=== PATIENT | female | born 1990 | race Caucasian/White ===

== ENCOUNTER 2021-02-04 17:55 | Emergency (ER) | payer BC ==
[2021-02-04 18:54] VITALS: RESP 18
[2021-02-04] MEDS ORDERED: ACETAMINOPHEN TAB 500 MG TAB PO STA (18:56)
[2021-02-04] MEDS ORDERED: IBUPROFEN 600 MG TAB PO STA (19:29)
--- NOTE | 2021-02-04 19:33 | ED ---
General Adult HPI - General Chief complaint: Shortness of Breath Stated complaint: covid+/increased SOB Time Seen by Provider: 02/04/21 19:04 Source: patient, RN notes reviewed Mode of arrival: ambulatory Limitations: no limitations - History of Present Illness Initial comments: This a 30-year-old female presents emergency Department chief complaint of positive covid. Patient states she started with symptoms last Thursday tested positive on 02/01/2021 patient states that she pressed has gotten worse cough started over the last few days with mild shortness of breath. No exertional symptoms no leg pain or leg swelling. Patient isn't diabetic taking metformin. Patient offers no other complaints. - Related Data Allergies Allergy/AdvReac Type Severity Reaction Status Date / Time No Known Allergies Allergy Verified 02/04/21 18:54 Review of Systems ROS Statement: Those systems with pertinent positive or pertinent negative responses have been documented in the HPI. ROS Other: All systems not noted in ROS Statement are negative. Past Medical History Past Medical History: Diabetes Mellitus Additional Past Medical History / Comment(s): PCOS, History of Any Multi-Drug Resistant Organisms: None Reported Past Surgical History: No Surgical Hx Reported Past Psychological History: No Psychological Hx Reported Smoking Status: Never smoker Past Alcohol Use History: None Reported Past Drug Use History: None Reported General Exam Limitations: no limitations General appearance: alert, in no apparent distress Head exam: Present: atraumatic, normocephalic, normal inspection Eye exam: Present: normal appearance, PERRL, EOMI. Absent: scleral icterus, conjunctival injection, periorbital swelling ENT exam: Present: normal exam, normal oropharynx, mucous membranes moist, TM's normal bilaterally Neck exam: Present: normal inspection, full ROM. Absent: tenderness, meningismus, lymphadenopathy Respiratory exam: Present: normal lung sounds bilaterally. Absent: respiratory distress, wheezes, rales, rhonchi, stridor Cardiovascular Exam: Present: normal rhythm, tachycardia, normal heart sounds. Absent: systolic murmur, diastolic murmur, rubs, gallop, clicks Neurological exam: Present: alert Course Vital Signs 02/04/21 18:51 Temperature 102.3 F H Pulse Rate 118 H Respiratory 18 Rate Blood Pressure 135/82 O2 Sat by Pulse 96 Oximetry Medical Decision Making - Medical Decision Making X-ray is essentially unremarkable. Patient's is vitally stable and will receive monoclonal antibodies and discharge. - Lab Data Lab Results 02/04/21 Range/Units 19:05 Coronavirus (PCR) Detected A (Not Detectd) Disposition Clinical Impression: COVID-19 Disposition: HOME SELF-CARE Condition: Stable Instructions (If sedation given, give patient instructions): Coronavirus Disease 2019 (COVID-19) Additional Instructions: Please return to the Emergency Department if symptoms worsen or any other concerns. Is patient prescribed a controlled substance at d/c from ED?: No Referrals: None,Stated [Primary Care Provider] - 1-2 days Time of Disposition: 19:33
--- NOTE | 2021-02-04 20:12 | XR ---
EXAMINATION TYPE: XR chest 2V DATE OF EXAM: 02/04/2021 CLINICAL HISTORY: Shortness of breath . COVID 19 positive. Fever. Cough. TECHNIQUE: Frontal and lateral view of the chest. COMPARISON: None FINDINGS: The cardiomediastinal silhouette is within normal limits for size. Pulmonary vasculature i s normal. There is no focal air space opacity, pleural effusion, or pneumothorax seen. The osseous st ructures are intact. IMPRESSION: No focal pulmonary process.
[2021-02-04] MEDS ORDERED: BAMLANIVIMAB (EUA) 700 MG, ETESEVIMAB (EUA) 1,400 MG in SODIUM CHLORIDE 0.9% 50 ML IVPB ONE (20:30)
[2021-02-04] MEDS ORDERED: SODIUM CHLORIDE 0.9% 50 ML IVPB ONE (20:30)
[2021-02-04 22:22] VITALS: BP 112/74; PULSE 102; TEMP 98.7
== END 2021-02-04 22:04 | disposition home or self-care (01) ==
LOC: EC 17:55
DX: U07.1 COVID-19 (principal); E11.9 Type 2 diabetes mellitus without complications
CPT/HCPCS: 87635; 71046; 99285; 96365; Q0245

== ENCOUNTER 2022-11-02 15:53 | Observation (INO) | payer BC ==
[2022-11-02] MEDS ORDERED: LACTATED RINGERS 1,000 ML IV SCH (16:45)
[2022-11-02 17:04] LABS: Basophils % (A) 0 %; Eosinophils # (A) 0.1 k/uL (0-0.7); Eosinophils % (A) 1 %; HCT 36.3 % (34.0-46.0); Lymphocytes # (A) 1.6 k/uL (1.0-4.8); Lymphocytes % (A) 17 %; MCH 26.9 pg (25.0-35.0); MCV 81.5 fL (80.0-100.0); Mean Platelet Volume 8.6; Monocytes # (A) 0.3 k/uL (0-1.0); Monocytes % (A) 3 %; Neutrophils # (A) 7.1 k/uL (1.3-7.7); Neutrophils % (A) 78 %; Platelet Count 118 k/uL (150-450); RBC 4.46 m/uL (3.80-5.40); RDW 14.7 % (11.5-15.5); WBC 9.1 k/uL (3.8-10.6)
[2022-11-02] MEDS: BETAMET ACET-BETAMETH SOD PHOS 6 MG/ML MDV IM SCH (17:30)
--- NOTE | 2022-11-02 17:44 | P.HPOB ---
History of Present Illness H&P Date: 11/02/22 Chief Complaint: Vaginal bleeding This is a 32-year-old 1 para 0 woman with an estimated due date of 02/11/2023 who presents at 25 weeks gestation with vaginal bleeding. She has had unexplained vaginal bleeding on and off throughout the . She woke up this morning with some bright red spotting and this is increased throughout the day. She developed some mild lower abdominal cramping and decided to come in for evaluation. Upon initial evaluation on labor and delivery triage she does have a pad that is saturated with dark blood. Speculum examination is limited secondary to small amount of dark clot in the vaginal canal and maternal body habitus. Bedside ultrasound shows an active fetus in the vertex presentation. Placenta is anterior with no evidence of blood show placental fluid accumulation. Transvaginal cervical length is greater than 4 cm. There is no funneling. PEARL appears normal, official ultrasound report is pending. Laboratory data: Blood type A+, antibody screen negative, rubella immune, VDRL nonreactive, hepatitis B surface antigen negative, HIV negative, gonorrhea and clinic cultures negative. Patient has type 2 diabetes and takes both metformin and insulin. This was conceived by in vitro fertilization. Patient had an ultrasound in the office on 10/29/2022 which showed an appropriately grown infant with normal PEARL, anterior placenta and no evidence of retroplacental bleed. There is no active bleeding noted throughout her time in triage and during the ultrasound however in light of her gestational age and unexplained episodes of vaginal bleeding plan is to admit for observation through the steroid window. First dose of betamethasone is given now and will be repeated in 24 hours. Patient and her are counseled that should she have any increase in bright red vaginal bleeding, signs of labor or distress that she will be likely transferred to a tertiary care facility. Patient and her are in agreement with the plan. Review of Systems All systems: negative Constitutional: Denies chills, Denies fatigue, Denies fever Cardiovascular: Denies chest pain, Denies rapid heart beat, Denies shortness of breath Respiratory: Denies cough Gastrointestinal: Denies abdominal pain, Denies BRBPR, Denies heartburn, Denies melena, Denies nausea, Denies vomiting Genitourinary: Reports abnormal vaginal bleeding, Denies hematuria Musculoskeletal: Denies low back pain Integumentary: Denies rash Neurological: Denies headaches, Denies visual changes Hematologic/Lymphatic: Denies easy bleeding, Denies easy bruising Past Medical History Past Medical History: Diabetes Mellitus Additional Past Medical History / Comment(s): PCOS, History of Any Multi-Drug Resistant Organisms: None Reported Past Surgical History: No Surgical Hx Reported Smoking Status: Never smoker Medications and Allergies Allergies Allergy/AdvReac Type Severity Reaction Status Date / Time No Known Allergies Allergy Verified 02/04/21 18:54 Exam Intake and Output 11/02/22 11/02/22 11/02/22 06:59 14:59 22:59 Other: Weight 103.873 kg Results Result Diagrams: 11/02/22 16:52 Abnormal Lab Results - Last 24 Hours (Table) 11/02/22 Range/Units 16:52 Plt Count 118 L (150-450) k/uL Assessment and Plan (1) 25 to 26 weeks gestation of Current Visit: Yes Status: Acute Code(s): NMZ2382 - SNOMED Code(s): 881966861 (2) Vaginal bleeding Current Visit: Yes Status: Acute Code(s): N93.9 - ABNORMAL UTERINE AND VAGINAL BLEEDING, UNSPECIFIED SNOMED Code(s): 268288930 (3) Diabetes in Current Visit: Yes Status: Acute Code(s): O24.919 - UNSP DIABETES MELLITUS IN , UNSPECIFIED TRIMESTER SNOMED Code(s): 821065910 Plan: Admit for observation secondary to unexplained vaginal bleeding in the second trimester. First dose of betamethasone given now and will be repeated in 24 hours. She may be discharged at that time assuming no change in status. Time with Patient: Greater than 30
--- NOTE | 2022-11-02 17:55 | US ---
EXAMINATION TYPE: US OB limited DATE OF EXAM: 11/02/2022 COMPARISON: NONE CLINICAL HISTORY: Bleeding. EXAM PERFORMED: GESTATIONAL AGE / DATING Physician Established: (25 weeks/4 days) EDC: 02-11-23 No growth performed on today?s study per ordering physician SURVEY PLACENTA: Anterior PREVIA: No Previa Ultrasound evidence of abruption? no PEARL: 11.6 cm Ultrasound evidence of premature rupture of membranes? no CERVICAL LENGTH (transabdominal: norm > 3.0cm): 3.5 cm CERVICAL LENGTH (transvaginal: norm> 2.5cm): 3.7 cm (Supplemental transvaginal imaging performed to verify cervical length.) Ultrasound evidence of cervical incompetence? no (Tech?if abnormal transabdominally?image transvaginally to substantiate abnormality.) PRESENTATION: Vertex HEART RATE: 142 bpm RHYTHM: Normal IMPRESSION: Normal amniotic fluid. No complicating process seen. Cephalic presentation.
[2022-11-02] MEDS ORDERED: INSULIN REGULAR 100 UNIT/ML VIAL (IM/SQ) SQ ONE (18:00)
--- NOTE | 2022-11-02 18:25 | US ---
EXAMINATION TYPE: US OB TV Cervical Measurement DATE OF EXAM: 11/02/2022 Pictures in OB limited. REASON FOR EXAM: Per Ordering Physician?this transvaginal scan is to assess the CERVICAL LENGTH for i ncompetence or funneling. GESTATIONAL AGE / DATING Physician Established: (25 weeks/4 days) EDC: 02-11-23 MATERNAL/ SURVEY CERVICAL LENGTH (transvaginal: norm> 2.5cm): 3.6 cm Ultrasound evidence of shortened cervix? no Ultrasound evidence of funneling? no PRESENTATION: Vertex HEART RATE: 142 bpm RHYTHM: Normal IMPRESSION: The cervix is closed and measures 4 cm in length.
[2022-11-02] MEDS: metFORMIN 500 MG TAB PO SCH ×2 (18:39→21:24)
[2022-11-02] MEDS: ASPIRIN 81 MG PO STA (18:39)
[2022-11-02 21:24] LABS: Glucose,Whole Blood 171 mg/dL (70-110)
[2022-11-03 04:14] VITALS: RESP 16
[2022-11-03] MEDS: INSULIN ASPART (NovoLOG) 100 UNIT/ML VIAL SQ SCH ×3 (04:15→12:13)
[2022-11-03] MEDS: ASPIRIN 81 MG PO STA (04:19)
[2022-11-03 07:02] LABS: Glucose,Whole Blood 126 mg/dL (70-110)
[2022-11-03] MEDS: metFORMIN 500 MG TAB PO SCH ×2 (07:25→17:20)
[2022-11-03] MEDS ORDERED: INSULIN REGULAR 100 UNIT/ML VIAL (IM/SQ) SQ ONE (08:00)
--- NOTE | 2022-11-03 11:53 | P.DS ---
Providers Date of admission: 11/02/22 17:33 Expected date of discharge: 11/03/22 Attending physician: Herbert Mello Primary care physician: Herbert Mello - Discharge Diagnosis(es) (1) 25 to 26 weeks gestation of Current Visit: Yes Status: Acute (2) Vaginal bleeding Current Visit: Yes Status: Acute Hospital Course: the patient is a 32-year-old 1 para 0 admitted at 25+ weeks by good dating parameters. her only complication is that she is a pre- gestational diabetic on insulin. She is admitted with an acute episode of vaginal bleeding which is unexplained in nature, no etiology apparent. She has had similar episodes earlier in the that resolved spontaneously. She did develop some mild lower abdominal cramping and decided to present to labor and delivery at which time she was evaluated. Ultrasound demonstrated no findings on transvaginal ultrasound demonstrated a normal cervical length of 3.6 cm with no evidence of funneling. There was no evidence of retroplacental clot or abruption of the placenta on any level. On labor and delivery, she was admitted for 23 observation and administration of steroids. She has had no further bleeding since admission. Blood sugars have been somewhat labile as might be expected with administration of steroids. Her second dose of steroids will be due late this afternoon after which time she will be discharged home to follow-up in the office as previously scheduled in approximately 3 weeks' time. she was given instructions to continue to call for any evidence of significant bleeding and to abstain from anything in vagina until at least the next evaluation in the office. She is to do no heavy lifting and to otherwise remain relatively at rest. She understood her instructions and agrees follow up as noted above. Discharge medications included only continue vitamins and her normal insulin regimen which she manages well on her own. Maternal blood type is A+. Procedures: #1. 23 hour observation #2. Administration of intramuscular steroids x2 Patient Condition at Discharge: Stable Plan - Discharge Summary Discharge Rx Participant: No Follow up Appointment(s)/Referral(s): Herbert Mello MD [Primary Care Provider] - 3 Weeks Discharge Disposition: HOME SELF-CARE
[2022-11-03 12:10] LABS: Glucose,Whole Blood 122 mg/dL (70-110)
[2022-11-03 16:17] VITALS: BP 117/70; PULSE 91; TEMP 98.6
[2022-11-03] MEDS: BETAMET ACET-BETAMETH SOD PHOS 6 MG/ML MDV IM SCH (17:21)
== END 2022-11-03 17:30 | disposition home or self-care (01) ==
LOC: FBPOP 15:53 → 4FBP 17:33
PROVIDERS: ADMIT Obstetrics & Gynecology; ATTEND Obstetrics & Gynecology
DX: O46.92 Antepartum hemorrhage, unspecified, second trimester (principal); O24.112 Pre-existing type 2 diabetes mellitus, in pregnancy, second trimester; E11.9 Type 2 diabetes mellitus without complications; O99.282 Endocrine, nutritional and metabolic diseases complicating pregnancy, second trimester; E28.2 Polycystic ovarian syndrome; Z3A.26 26 weeks gestation of pregnancy; Z79.4 Long term (current) use of insulin; Z79.84 Long term (current) use of oral hypoglycemic drugs
CPT/HCPCS: 99215; 96360; 96372 ×2; 85025; 76815; 76817; G0378 ×2; J0702 ×2; 96365

== ENCOUNTER 2022-12-25 06:31 | Outpatient (CLI) | payer BC ==
[2022-12-25 10:09] VITALS: BP 122/80; PULSE 76; RESP 18; TEMP 98
--- NOTE | 2023-01-24 12:03 | P.MSEPDOC ---
Presenting Problems - Arrival Data Date of Arrival on Unit: 12/25/22 Time of Arrival on Unit: 06:00 Mode of Transport: Ambulatory - Complaint OB-Reason for Admission/Chief Complaint: Decreased Movement, Vaginal Bleeding Medical History - Information : 1 Para: 0 Term: 0 : 0 Abortions: Spontaneous or Elective: 0 Number of Living Children: 0 - Gestational Age Gestational Age by SUSIE (wks/days): 33 Weeks and 1 Days - History Comment: ongoing bleeding in , decreased movement today Review of Systems - Review of Systems Constitutional: No problems Breast: No problems ENT: No problems Cardiovascular: No problems Respiratory: No problems Gastrointestinal: No problems Genitourinary: No problems Musculoskeletal: No problems Neurological: No problems Skin: No problems Vital Signs - Temperature Temperature: 98.0 F Temperature Source: Oral - Pulse Right Sitting Brachial Pulse Rate: 76 Pulse Assessment Method: Automatic Cuff - Respirations Respiratory Rate: 18 Oxygen Delivery Method: Room Air - Blood Pressure Right Arm Sitting Blood Pressure: 122/80 Blood Pressure Mean: 94 Blood Pressure Source: Automatic Cuff Medical Screen Scoring - Assessment - Baby A Baseline FHR: 135 Heart Rate - NICHD Category: Category I (Normal) NST: Reactive Physician Notification - Physician Notified Physician Notified Date: 12/25/22 Physician Notified Time: 10:07 Physician: 1000 New Order Received: Yes - Notification Comment Comment: co home. Dr Mello to call pt with plan after speaking with MFM. Continue NSTs as discussed per Dr Mello. Pt verbalized understanding Maternal Triage Index - Maternal Triage Index Presenting for scheduled procedure w/no complaint: No - Stat/Priority 1 Stat Priority 1: No - Urgent/Priority 2 Urgent Priority 2: No - Prompt/Priority 3 Prompt Priority 3: Yes Criteria Met for Priority 3: ongoing bleeding in Disposition - Disposition OB Disposition: Discharge to home Discharge Date: 12/25/22 Discharge Time: 10:03 I agree with the RN Medical Screening Exam: Yes Physician's MSE Comment: I have neither seen nor examined the patient. Case reviewed; plan agreed upon as documented in EMR&OBIX.: Yes Diagnosis: RELATED CONDITIONS, UNSPECIFIED, THIRD TRIMESTER
== END 2022-12-25 10:00 | disposition home or self-care (01) ==
LOC: FBPOP 06:31
PROVIDERS: ATTEND Obstetrics & Gynecology
DX: O46.93 Antepartum hemorrhage, unspecified, third trimester (principal); Z3A.33 33 weeks gestation of pregnancy; O36.8131 Decreased fetal movements, third trimester, fetus 1
CPT/HCPCS: 59025; 99215

== ENCOUNTER 2023-01-03 18:30 | Outpatient (CLI) | payer BC ==
[2023-01-03 21:42] VITALS: BP 146/85; PULSE 80; RESP 16; TEMP 98.4
--- NOTE | 2023-02-08 10:14 | P.MSEPDOC ---
Presenting Problems - Arrival Data Date of Arrival on Unit: 01/03/23 Time of Arrival on Unit: 18:30 Mode of Transport: Ambulatory - Complaint OB-Reason for Admission/Chief Complaint: Vaginal Bleeding Comment: pt presents to triage with c/o bleeding that has been ongoing for the last few. weeks and has been seen in triage as well [place] [facility] [place] then d/c home from there at noon the same day Medical History - Information : 1 Para: 0 Term: 0 : 0 Abortions: Spontaneous or Elective: 0 Number of Living Children: 0 - Gestational Age Gestational Age by SUSIE (wks/days): 34 Weeks and 3 Days - History Complications: Other Comment: Type 2 diabetic on insulin, IVF treatment for Review of Systems - Review of Systems Constitutional: No problems Breast: No problems ENT: No problems Cardiovascular: No problems Respiratory: No problems Gastrointestinal: No problems Genitourinary: No problems Musculoskeletal: No problems Neurological: No problems Skin: No problems Vital Signs - Temperature Temperature: 98.4 F Temperature Source: Temporal Artery Scan - Pulse Pulse Oximetery Pulse Rate: 80 Pulse Assessment Method: Pulse Oximetry - Respirations Respiratory Rate: 16 Oxygen Delivery Method: Room Air O2 Sat by Pulse Oximetry: 99 - Blood Pressure Left Arm Blood Pressure: 146/85 Blood Pressure Mean: 105 Blood Pressure Source: Automatic Cuff Medical Screen Scoring - Assessment - Baby A Baseline FHR: 130 Heart Rate - NICHD Category: Category I (Normal) NST: Reactive Physician Notification - Physician Notified Physician Notified Date: 01/03/23 Physician Notified Time: 18:55 Physician: Diane Reyes S - Notification Comment Comment: report given to dr reyes, reported pt ongoing hx of bleeding and interventions. leading up to todays visit. dr reyes aware. reported variable and nst non. reactive at this time. per torb dr reyes, monitor pt for a couple of hours. give more. time for reactive nst, pt to be npo, and monitor bleeding/pad count. call back for. additional orders after monitoring period is complete. Maternal Triage Index - Maternal Triage Index Presenting for scheduled procedure w/no complaint: No - Stat/Priority 1 Stat Priority 1: No - Urgent/Priority 2 Urgent Priority 2: No - Prompt/Priority 3 Prompt Priority 3: No - Non-Urgent/Priority 4 Non-Urgent Priority 4: Yes Criteria Met for Priority 4: pt presents to triage with c/o bleeding that has been ongoing for the last few. weeks and has been seen in triage as well [place] [facility] [place] then d/c home from there at noon the same day Disposition - Disposition OB Disposition: Discharge to home Discharge Date: 01/03/23 Discharge Time: 21:13 I agree with the RN Medical Screening Exam: Yes Case reviewed; plan agreed upon as documented in EMR&OBIX.: Yes Diagnosis: SPOTTING COMPLICATING , THIRD TRIMESTER
== END 2023-01-03 21:13 ==
LOC: FBPOP 18:30
PROVIDERS: ATTEND Obstetrics & Gynecology Obstetrics
DX: O26.853 Spotting complicating pregnancy, third trimester (principal); Z3A.34 34 weeks gestation of pregnancy; O24.913 Unspecified diabetes mellitus in pregnancy, third trimester; O09.813 Supervision of pregnancy resulting from assisted reproductive technology, third trimester; E11.9 Type 2 diabetes mellitus without complications; Z79.4 Long term (current) use of insulin
CPT/HCPCS: 59025; 99213

== ENCOUNTER 2023-01-06 16:20 | Outpatient (CLI) | payer BC ==
[2023-01-06 18:09] VITALS: BP 162/94; PULSE 77; TEMP 97
== END 2023-01-06 17:46 | disposition home or self-care (01) ==
LOC: FBPOP 16:20
PROVIDERS: ATTEND Obstetrics & Gynecology
DX: O76 Abnormality in fetal heart rate and rhythm complicating labor and delivery (principal); Z3A.34 34 weeks gestation of pregnancy
CPT/HCPCS: 59025; 99213

== ENCOUNTER 2023-01-16 08:04 | Inpatient (IN) | payer BC ==
[2023-01-16 08:38] LABS: Glucose,Whole Blood 73 mg/dL (70-110)
[2023-01-16] MEDS ORDERED: LACTATED RINGERS 1,000 ML IV ONE (08:45)
[2023-01-16] MEDS ORDERED: CITRIC ACID-SODIUM CITRATE 15 ML CUP PO ONE (08:45)
[2023-01-16] MEDS ORDERED: METHYLERGONOVINE 0.2 MG/ML 1 ML AMP IM PRN (08:45)
[2023-01-16] MEDS ORDERED: TRANEXAMIC ACID IN NACL,ISO-OS 1,000 MG in EMPTY BAG 1 BAG IV PRN (08:45)
[2023-01-16] MEDS ORDERED: OXYTOCIN 30 UNITS/500 ML NS 30 UNIT in SALINE 1 500ML.BAG IV SCH ×2 (08:45→11:30)
[2023-01-16] MEDS ORDERED: miSOPROStoL 200 MCG TAB PO PRN (08:45)
[2023-01-16] MEDS ORDERED: OXYTOCIN 10 UNIT/ML 1 ML VIAL IM PRN (08:45)
[2023-01-16] MEDS ORDERED: CARBOPROST TROMETHAMINE 250 MCG/ML 1 ML AMP IM PRN (08:45)
[2023-01-16 09:05] LABS: Basophils % (A) 0 %; Eosinophils # (A) 0.1 k/uL (0-0.7); Eosinophils % (A) 1 %; HCT 36.3 % (34.0-46.0); HGB 11.9 gm/dL (11.4-16.0); Lymphocytes # (A) 1.5 k/uL (1.0-4.8); Lymphocytes % (A) 17 %; MCH 26.5 pg (25.0-35.0); MCHC 32.7 g/dL (31.0-37.0); MCV 80.9 fL (80.0-100.0); Mean Platelet Volume 10.1; Monocytes # (A) 0.4 k/uL (0-1.0); Monocytes % (A) 4 %; Neutrophils % (A) 77 %; Platelet Count 118 k/uL (150-450); RBC 4.49 m/uL (3.80-5.40); RDW 14.9 % (11.5-15.5); WBC 9.1 k/uL (3.8-10.6)
[2023-01-16 09:16] LABS: ALT 15 U/L (4-34); AST 21 U/L (14-36); African American GFR (CKD) >90 (>60 ml/min/1.73 sqM); Blood Urea Nitrogen 15 mg/dL (7-17); LDH 153 U/L (120-246); Non-African American GFR(CKD) >90 (>60 ml/min/1.73 sqM); Uric Acid 6.8 mg/dL (3.7-7.4)
[2023-01-16 09:37] LABS: INR 0.9 (<1.2); Prothrombin Time 9.5 sec (9.0-12.0)
--- NOTE | 2023-01-16 09:39 | P.HPOB ---
History of Present Illness H&P Date: 01/16/23 Chief Complaint: 36+ weeks, IUGR, oligohydramnios, unfavorable cervix the patient is a 32-year-old 1 para 0 who is admitted to the hospital at 36-2/7 weeks as determined by in vitro fertilization dating. She is admitted for primary low-transverse section secondary to primarily intrauterine growth restriction with now fairly significant oligohydramnios. Ultrasound yesterday demonstrated amniotic fluid index of 3.9 cm. Biophysical profile was 10 out of 10. Her is also been complicated by irregular random unexplained episodes of vaginal bleeding. 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 She was diagnosed at approximately 31 weeks with intrauterine growth restrict ion. She has had twice weekly testing which has been reassuring throughout. She did undergo maternal medicine consultation and was transferred twice to [facility] for further evaluation secondary to the intermittently of the problems listed above. On labor and delivery today, all signs are reassuring with a category 1 heart rate tracing. Blood sugar is normal. She does have some mildly elevated blood pressures but is also extraordinarily nervous regarding the upcoming procedure. Group B strep status has not been done given her gestational age. Obstetrical history: 1 para 0 with current statistics listed in history present illness. EDC of 02/11/2023 was established by in vitro fertilization dating parameters. Laboratory workup demonstrates a blood type of A+ with a negative antibody screen. Rubella status is immune. The remainder of the laboratory workup was within normal limits. The patient was a known diabetic and did not undergo any Glucola testing. Group B strep status is unknown as she is just 36 weeks. Gynecologic history: Unremarkable with no history of any infections to include STDs. Review of Systems review of systems is confined to history of present illness. Past Medical History Past Medical History: Diabetes Mellitus Additional Past Medical History / Comment(s): PCOS, History of Any Multi-Drug Resistant Organisms: None Reported Past Surgical History: No Surgical Hx Reported Additional Past Surgical History / Comment(s): hysteroscopy and egg retreval 2021 Past Anesthesia/Blood Transfusion Reactions: No Reported Reaction Past Psychological History: No Psychological Hx Reported Smoking Status: Never smoker Past Alcohol Use History: None Reported Past Drug Use History: None Reported Medications and Allergies Home Medications Medication Instructions Recorded Confirmed Type Aspirin [Adult Low Dose Aspirin EC] 1 tablet DAILY 12/18/22 01/06/23 History Cholecalciferol [Vitamin D3 (25 1,000 units DAILY 12/18/22 01/06/23 History Mcg = 1000 Iu)] Folic Acid 1 tablet DAILY 12/18/22 01/06/23 History Insulin Glargine [Lantus Vial] 80 units SQ ACHS 12/18/22 01/06/23 History Insulin Lispro Rx Scale Form 80 units SQ DAILY 12/18/22 01/06/23 History [humaLOG Outpatient Scale Rx Form] [place]-3/Dha/Epa/Fish Oil [Fish Oil 1 capsule DAILY 12/18/22 01/06/23 History 500 mg Softgel] Vit No.179/Iron/Folic 1 tablet DAILY 12/18/22 01/06/23 History [ Tablet] metFORMIN HCL 1,000 mg PO BID 12/18/22 01/06/23 History Allergies Allergy/AdvReac Type Severity Reaction Status Date / Time No Known Allergies Allergy Verified 01/06/23 16:38 Exam Vital Signs Resp BP Pulse Ox 01/16/23 08:25 18 154/100 99 Intake and Output 01/15/23 01/16/23 01/16/23 22:59 06:59 14:59 Other: Weight 117.934 kg in general, this is a morbidly obese white female in no acute distress. Her heart has a regular rhythm and rate without murmur. Her lungs clear to auscultation bilaterally in all rush. Her abdomen is obese, nondistended, has normal active bowel sounds, soft, nontender, without any palpable masses aside from uterine fundus. Her extremities are without any cyanosis, clubbing, or edema and are nontender to palpation bilaterally. Digital cervical examination performed yesterday demonstrated her cervix to be closed, thick, and very high. The vertex is in presentation. Results Result Diagrams: 01/16/23 08:30 01/16/23 08:30 Abnormal Lab Results - Last 24 Hours (Table) 01/16/23 Range/Units 08:30 Plt Count 118 L (150-450) k/uL Assessment and Plan (1) Unfavorable cervix in term Current Visit: Yes Status: Acute Code(s): O34.40 - MATERNAL CARE FOR OTH ABNLT OF CERVIX, UNSP TRIMESTER SNOMED Code(s): 798248669 (2) Oligohydramnios Current Visit: Yes Status: Acute Code(s): O41.00X0 - OLIGOHYDRAMNIOS, UNSP TRIMESTER, NOT APPLICABLE OR UNSP SNOMED Code(s): 57297687 (3) Intrauterine growth retardation in Current Visit: Yes Status: Acute Code(s): O36.5990 - MATERN CARE FOR OTH OR SUSP POOR FETL GRTH, UNSP TRI, UNSP SNOMED Code(s): 470710502 (4) 36 to 37 weeks gestation of Current Visit: Yes Status: Acute Code(s): YMS6752 - SNOMED Code(s): 730240317 Plan: the patient is admitted for primary low-transverse section. We discussed the possibility of induction of labor but, given the remoteness from delivery and the diagnoses as outlined above, the likelihood of tolerance of labor is very low. The patient has received steroids during the and the suspicion for prematurity is low despite the diagnosis of diabe adriana. She will be taken to the operating room for primary low-transverse section within the next 20-30 minutes.
[2023-01-16] MEDS: LACTATED RINGERS 1,000 ML IV SCH ×2 (09:43→17:54)
[2023-01-16 09:46] LABS: Appearance,Urine Clear (Clear); Bilirubin,Urine Negative (Negative); Blood,Urine Trace (Negative); Color,Urine Yellow; Glucose,Urine (UA) Negative (Negative); Ketones,Urine Negative (Negative); Leukocyte Esterase,Urine Negative (Negative); Mucus,Urine Occasional /hpf; Nitrite,Urine Negative (Negative); Protein,Urine 3+ (Negative); RBC,Urine 1 /hpf (0-5); Specific Gravity,Urine 1.023 (1.001-1.035); Squamous Epithelial Cell,Urine <1 /hpf (0-4); Urobilinogen,Urine <2.0 mg/dL (<2.0); WBC,Urine 1 /hpf (0-5)
[2023-01-16 09:54] LABS: Creatinine,Urine Random 128.9 mg/dL
[2023-01-16 10:03] LABS: Protein/Creatinine Ratio,Urine 3.507
[2023-01-16] MEDS ORDERED: OXYTOCIN 30 UNITS/500 ML NS BAG IV ONE (10:04)
[2023-01-16] MEDS ORDERED: PROPOFOL 10 MG/ML 20 ML VIAL IV ONE (10:04)
[2023-01-16] MEDS ORDERED: SUCCINYLCHOLINE CHLORIDE 200 MG/10 ML VIAL IV ONE (10:04)
[2023-01-16] MEDS ORDERED: ONDANSETRON 4 MG/2 ML VIAL ONE (10:04)
[2023-01-16] MEDS ORDERED: fentaNYL (PF) 50 MCG/ML 2 ML AMP ONE (10:04)
[2023-01-16] MEDS ORDERED: KETOROLAC 30 MG/ML 1 ML VIAL ONE (10:04)
[2023-01-16] MEDS ORDERED: NALOXONE 0.4 MG/ML 1 ML VIAL IV PRN (11:29)
[2023-01-16] MEDS ORDERED: LANOLIN CREAM 5 GM TUBE TOPICAL PRN (11:29)
[2023-01-16] MEDS ORDERED: diphenhydrAMINE 50 MG/ML 1 ML VIAL IVP PRN ×2 (11:29)
[2023-01-16] MEDS ORDERED: ONDANSETRON 4 MG/2 ML VIAL IVP PRN (11:29)
[2023-01-16] MEDS ORDERED: ZOLPIDEM 5 MG TAB PO PRN (11:29)
[2023-01-16] MEDS ORDERED: diphenhydrAMINE 25 MG CAP PO PRN (11:29)
[2023-01-16] MEDS ORDERED: SIMETHICONE 80 MG CHEWABLE PO PRN (11:29)
[2023-01-16] MEDS ORDERED: diphenhydrAMINE 50 MG CAP PO PRN (11:29)
[2023-01-16] MEDS ORDERED: METOCLOPRAMIDE 5 MG/ML 2 ML VIAL IVP PRN (11:29)
[2023-01-16] MEDS ORDERED: KETOROLAC 15 MG/ML 1 ML VIAL IVP PRN (11:29)
[2023-01-16] MEDS ORDERED: HYDROmorphone PCA 10 MG/50 ML BAG IV PRN (11:29)
--- NOTE | 2023-01-16 11:40 | P.OP ---
Date of Procedure: 01/16/23 Preoperative Diagnosis: #1. 36-2/7 weeks, IUGR #2. Severe oligohydramnios #3. Insulin-dependent diabetes #4. Unfavorable cervix/remote from delivery Postoperative Diagnosis: same Procedure(s) Performed: #1. Primary low-transverse section Anesthesia: TAQUERIA Surgeon: Herbert Mello Crawler Dragline Operator #1: Josephine Vilchis Estimated Blood Loss (ml): 630 IV fluids (ml): 2,000 Urine output (ml): 300 Pathology: other (placenta) Condition: stable Disposition: floor Operative Findings: multiple attempts were made to place a spinal by anesthesia at several different levels and with different length and size of needles with no success. As a result general endotracheal anesthesia was required. Intraoperatively, the patient was delivered of a viable 4 lbs. 5 oz. baby boy with Apgars of 8 at 1 minute and 8 at 5 minutes. There was meconium-stained fluid. The placenta was delivered manually, intact, and grossly normal with a grossly normal three- vessel cord. The uterus, tubes, and ovaries were entirely normal to inspection. Description of Procedure: after multiple attempts at placing a spinal were made with no success, the patient was prepped and draped in usual fashion after which time general endotracheal anesthesia was administered. A Pfannenstiel incision was made and extended into the abdominal cavity without difficulty. The bladder peritoneum was significantly distal to the intended site of incision was left intact. A 2 cm incision was made in the transverse plane of the lower uterine segment to enter the uterus at which time the placenta was encountered. I proceeded through the placenta to the infant was in the vertex presentation. There was lightly meconium-stained fluid. The head was delivered up and through the incision and the infant was delivered onto the field where the nose and mouth were thoroughly suctioned, the cord was doubly clamped, cut, and the infant passed resuscitative measures with weight and Apgars as noted above. A segment of cord was doubly clamped, cut, and set aside should cord gases become necessary. The placenta was delivered manually and intact as noted above. The uterus was exteriorized and the interior cavity uterus swept of any remaining placental or membranous fragments. The margins of the uterine incision were grasped with Segovia clamps and the incision closed in 2 layers. The first layer was a running locking stitch of 0 chromic catgut followed by a running imbricating layer of 0 chromic catgut. There was some ongoing bleeding from a central sinus which was made hemostatic with a single [id number] stitch of 0 chromic catgut. The posterior cul-de-sac was suctioned with a guard and then cleaned further with a laparotomy sponge. The uterine and ovarian findings were normal as noted above. The uterus was replaced within the abdominal cavity and the gutters swept of any remaining blood, fluid, or clot. Reexamination of the uterine incision demonstrated excellent hemostasis. The parietal peritoneum was loosely reapproximated and layer of muscles examined and made hemostatic with the Bovie. The fascia was closed with 2 running stitches of 0 Vicryl starting from the lateral margins and proceeding to the midpoint. The subcutaneous tissues were irrigated, made hemostatic with the Bovie and reapproximated with a running stitch of 3-0 plain catgut. The skin was reapproximated with a running subcuticular stitch of 4-0 Vicryl followed by half-inch Steri-Strips placed with Mastisol. Quantitative blood loss for the case was 630 mL. There were no complications. All sponge, instrument, needle counts were correct. Both mother and infant are resting comfortably in recovery.
[2023-01-16] MEDS ORDERED: LABETALOL 100 MG TAB PO SCH (13:00)
[2023-01-16 15:57] LABS: Glucose,Whole Blood 79 mg/dL (70-110)
--- NOTE | 2023-01-16 16:32 | P.CONS ---
History of Present Illness - Reason for Consult Consult date: 01/16/23 - History of Present Illness Patient is a 32-year-old female G1 P 0 admitted to [facility] for elective low-transverse section secondary to intrauterine growth restriction and oligohydramnios. She underwent primary low transverse section with Dr. Mello on 01/16. [facility] has been consulted for medical management of this patient with regard to elevated blood pressures and management of diabetes requiring insulin. Patient reports being diagnosed with gestational hypertension by her MFM 1 week ago. She was not started on any medication at that time. Her BP prior to surg alona today was 154/100. Her BP post surgery has ranged from BP of 166 to DBP of 102. Her most recent BP is 145/92. Patient reports being diagnosed with diabetes mellitus in 2019. She follows an medical economics consultant. Prior to , she was on Lantus 35 units twice a day along with NovoLog sliding scale 3 times a day. During her , her Lantus was increased to 40 units twice a day. Her medical economics consultant told her to decrease her Lantus to 20 units twice a day post delivery. Her most recent Accu-Chek during this encounter is 79. Patient reports 0 out of 10 pain currently. She has no complaints currently. She denies any chest pain, shortness breath, palpitations, dizziness or headache. Pertinent positives and negatives as discussed in HPI, a complete review of systems was performed and all other systems are negative. General: non toxic, no distress, appears at stated age Derm: warm, dry Head: atraumatic, normocephalic, symmetric Eyes: EOMI, no lid lag, anicteric sclera Mouth: no lip lesion, mucus membranes moist Cardiovascular: S1S2 reg, no murmur Lungs: CTA bilateral, no rhonchi, no rales , no accessory muscle use Ext: no gross muscle atrophy, no edema, no contractures Neuro: no focal neuro deficits Psych: Alert, oriented, appropriate affect #Preeclampsia #Insulin-requiring diabetes mellitus Based on my assessment of this patient, this patient meets a high complexity level of care. I have reviewed the following ada accommodation consultant notes: I have reviewed the results of the following tests: CBC shows platelet count of 118. Coagulation panel is within normal limits. BUN 15, creatinine 0.55 and GFR > 90. Nnopa-sy-cwlk Accu-Chek 79. Hemoglobin A1c 5.9. Uric acid 6.8. AST is 21, ALT is 15. I have ordered the following tests: CBC ordered for tomorrow morning. I have discussed the care of this patient with the following independent historian: None. I have independently interpreted the following test below: None. I have discussed the management of this patient with the following physician: None. This patient has a high risk of morbidity due to the following reasons: Patient has an acute diagnosis of preeclampsia that poses a threat to life or bodily function. She rates her pain 0 out of 10 currently. Urinalysis shows 3+ protein, protein to creatinine ratio 3.507 and urine total protein of 452. We will start labetalol 100 mg mouth twice a day for SBP > 160 or DBP > 90. Her most recent hemoglobin A1c is 5.9. Her most recent Accu-Chek is 79. I will hold her long-acting insulin at this time. We'll start low-dose sliding scale. Accu-Cheks will be ordered before meals and at bedtime along with hypoglycemic precautions. Continue Dilaudid IV ACID DUMPER pump for pain control. This should also help with controlling her blood pressure. Repeat CBC tomorrow morning. Past Medical History Past Medical History: Diabetes Mellitus Additional Past Medical History / Comment(s): PCOS, History of Any Multi-Drug Resistant Organisms: None Reported Past Surgical History: No Surgical Hx Reported Additional Past Surgical History / Comment(s): hysteroscopy and egg retreval 2021 Past Anesthesia/Blood Transfusion Reactions: No Reported Reaction Past Psychological History: No Psychological Hx Reported Smoking Status: Never smoker Past Alcohol Use History: None Reported Past Drug Use History: None Reported Medications and Allergies Home Medications Medication Instructions Recorded Confirmed Type Aspirin [Adult Low Dose Aspirin EC] 1 tablet DAILY 12/18/22 01/06/23 History Cholecalciferol [Vitamin D3 (25 1,000 units DAILY 12/18/22 01/06/23 History Mcg = 1000 Iu)] Folic Acid 1 tablet DAILY 12/18/22 01/06/23 History Insulin Glargine [Lantus Vial] 80 units SQ ACHS 12/18/22 01/06/23 History Insulin Lispro Rx Scale Form 80 units SQ DAILY 12/18/22 01/06/23 History [humaLOG Outpatient Scale Rx Form] [place]-3/Dha/Epa/Fish Oil [Fish Oil 1 capsule DAILY 12/18/22 01/06/23 History 500 mg Softgel] Vit No.179/Iron/Folic 1 tablet DAILY 12/18/22 01/06/23 History [ Tablet] metFORMIN HCL 1,000 mg PO BID 12/18/22 01/06/23 History Allergies Allergy/AdvReac Type Severity Reaction Status Date / Time No Known Allergies Allergy Verified 01/06/23 16:38 Physical Exam Vitals: Vital Signs Temp Pulse Resp BP Pulse Ox 01/16/23 14:25 145/92 01/16/23 13:37 98.3 F 82 16 156/94 99 01/16/23 13:00 80 16 166/97 97 01/16/23 12:30 82 16 137/97 95 01/16/23 12:15 84 15 161/99 01/16/23 12:00 82 16 157/97 99 01/16/23 11:45 95 15 156/91 100 01/16/23 11:30 97.1 F L 78 16 158/102 99 01/16/23 08:25 18 154/100 99 Intake and Output 01/16/23 01/16/23 01/16/23 06:59 14:59 22:59 Output Total 780 Balance -780 Output: Output, Quantitative 780 Blood Loss Other: Weight 117.934 kg Results CBC & Chem 7: 01/16/23 08:30 01/16/23 08:30 Labs: Abnormal Lab Results - Last 24 Hours (Table) 01/16/23 01/16/23 Range/Units 08:30 09:15 Plt Count 118 L (150-450) k/uL Urine Protein 3+ H (Negative) Urine Blood Trace H (Negative) Urine Mucus Occasional H (None) /hpf
[2023-01-16] MEDS: IBUPROFEN 600 MG TAB PO SCH (17:30)
[2023-01-16] MEDS: ACETAMINOPHEN TAB 500 MG TAB PO SCH ×2 (17:44→20:43)
[2023-01-16] MEDS: INSULIN ASPART (NovoLOG) 100 UNIT/ML VIAL SQ SCH ×2 (17:45→23:33)
[2023-01-16] MEDS: SENNOSIDES-DOCUSATE SODIUM 1 EACH TAB PO SCH (23:33)
[2023-01-17] MEDS: IBUPROFEN 600 MG TAB PO SCH ×4 (00:33→20:16)
[2023-01-17] MEDS: ACETAMINOPHEN TAB 500 MG TAB PO SCH ×3 (03:43→19:23)
[2023-01-17] MEDS: LABETALOL 100 MG TAB PO PRN (03:51)
[2023-01-17] MEDS: LACTATED RINGERS 1,000 ML IV SCH ×7 (06:27→23:39)
[2023-01-17 07:43] LABS: Basophils % (A) 0 %; Eosinophils # (A) 0.1 k/uL (0-0.7); Eosinophils % (A) 1 %; HCT 30.7 % (34.0-46.0); HGB 10.1 gm/dL (11.4-16.0); Lymphocytes # (A) 1.1 k/uL (1.0-4.8); Lymphocytes % (A) 14 %; MCHC 32.9 g/dL (31.0-37.0); MCV 82.2 fL (80.0-100.0); Mean Platelet Volume 10.4; Monocytes # (A) 0.3 k/uL (0-1.0); Monocytes % (A) 4 %; Neutrophils # (A) 6.6 k/uL (1.3-7.7); Neutrophils % (A) 80 %; Platelet Count 111 k/uL (150-450); RBC 3.74 m/uL (3.80-5.40); RDW 15.2 % (11.5-15.5); WBC 8.2 k/uL (3.8-10.6)
[2023-01-17] MEDS: INSULIN ASPART (NovoLOG) 100 UNIT/ML VIAL SQ SCH ×4 (08:26→23:29)
[2023-01-17] MEDS: SENNOSIDES-DOCUSATE SODIUM 1 EACH TAB PO SCH ×2 (08:28→20:16)
--- NOTE | 2023-01-17 10:14 | P.PNOBGPC ---
Subjective - Subjective Principal diagnosis: Postop day 1 Interval history: Postop day 1 status post primary low transverse section. She reports her pain is well-controlled and she is on tolerating a general diet. She had a bowel movement this morning without difficulty and is feeling better. Patient reports: Reports appetite normal, Reports voiding normally, Reports pain well controlled, Reports ambulating normally, Denies dizzy ambulation, Denies nauseated Hester: doing well, nursing well Objective - Vital Signs Latest vital signs: Vital Signs Temp Pulse Resp BP Pulse Ox 01/17/23 08:00 98.0 F 78 18 137/82 98 01/17/23 03:50 98.0 F 91 16 149/92 97 01/17/23 00:00 98.7 F 86 16 136/93 98 01/16/23 20:00 99.0 F 99 16 142/89 98 01/16/23 16:00 98.6 F 82 16 151/89 01/16/23 14:25 145/92 01/16/23 13:37 98.3 F 82 16 156/94 99 01/16/23 13:00 80 16 166/97 97 01/16/23 12:30 82 16 137/97 95 01/16/23 12:15 84 15 161/99 01/16/23 12:00 82 16 157/97 99 01/16/23 11:45 95 15 156/91 100 01/16/23 11:30 97.1 F L 78 16 158/102 99 Intake and Output 01/16/23 01/17/23 01/17/23 22:59 06:59 14:59 Intake Total 480 Output Total 500 400 Balance -500 -400 480 Intake: IV 480 Output: Urine 500 400 Uretheral (Hanna) 200 Other: # Voids 1 1 - Exam Extremities: Present: edema Abdomen: Present: normal appearance, soft. Absent: distention, tenderness Incision: Present: normal, dry, intact. Absent: erythematous Uterus: Present: normal, firm. Absent: tenderness - Labs Labs: Abnormal Lab Results - Last 24 Hours (Table) 01/17/23 Range/Units 07:04 RBC 3.74 L (3.80-5.40) m/uL Hgb 10.1 L (11.4-16.0) gm/dL Hct 30.7 L (34.0-46.0) % Plt Count 111 L (150-450) k/uL Assessment and Plan (1) 36 to 37 weeks gestation of Current Visit: Yes Status: Acute Code(s): WIX7876 - SNOMED Code(s): 020059214 (2) Diabetes in Narrative/Plan: Currently on insulin sliding scale, not requiring coverage at this time. Current Visit: Yes Status: Acute Code(s): O24.919 - UNSP DIABETES MELLITUS IN , UNSPECIFIED TRIMESTER SNOMED Code(s): 352075269 (3) Intrauterine growth retardation in Current Visit: Yes Status: Acute Code(s): O36.5990 - MATERN CARE FOR OTH OR SUSP POOR FETL GRTH, UNSP TRI, UNSP SNOMED Code(s): 688622269 (4) Oligohydramnios Current Visit: Yes Status: Acute Code(s): O41.00X0 - OLIGOHYDRAMNIOS, UNSP TRIMESTER, NOT APPLICABLE OR UNSP SNOMED Code(s): 47289137 (5) S/P section Narrative/Plan: Postop day 1 status post primary low transverse section for oligohydramnios and intrauterine growth restriction. She is recovering well. Routine care. Current Visit: Yes Status: Acute Code(s): Z98.891 - HISTORY OF UTERINE SCAR FROM PREVIOUS SURGERY SNOMED Code(s): 939989066 (6) Unfavorable cervix in term Current Visit: Yes Status: Acute Code(s): O34.40 - MATERNAL CARE FOR OTH ABNLT OF CERVIX, UNSP TRIMESTER SNOMED Code(s): 650502799 (7) Gestational hypertension Narrative/Plan: Blood pressures well-controlled with labetalol 100 mg twice daily. No signs or symptoms of preeclampsia. Current Visit: Yes Status: Acute Code(s): O13.9 - GESTATIONAL HTN W/O SIGNIFICANT PROTEINURIA, UNSP TRIMESTER SNOMED Code(s): 77178363 Plan: Up day 1 status post primary low transverse section for intrauterine growth restriction and oligohydramnios. Recovering well. Routine care.
--- NOTE | 2023-01-17 13:30 | P.PN ---
Subjective Progress Note Date: 01/17/23 Patient is a 32-year-old female G1 P 0 admitted to [facility] for elective low-transverse section secondary to intrauterine growth restriction and oligohydramnios. She underwent primary low transverse section with Dr. Mello on 01/16. [facility] has been consulted for medical management of this patient with regard to elevated blood pressures and management of diabetes requiring insulin. Patient reports being diagnosed with gestational hypertension by her MFM 1 week ago. She was not started on any medication at that time. Her BP prior to surgery today was 154/100. Her BP post surgery has ranged from BP of 166 to DBP of 102. Patient reports being diagnosed with diabetes mellitus in 2019. She follows an chiropractic teacher. Prior to , she was on Lantus 35 units twice a day along with NovoLog sliding scale 3 times a day. During her , her Lantus was increased to 40 units twice a day. Her chiropractic teacher told her to decrease her Lantus to 20 units twice a day post delivery. Patient was seen and examined. No acute events overnight. Patient reports 0 out of 10 pain currently. She has no complaints currently. She denies any chest pain, shortness breath, palpitations, dizziness or headache. General: non toxic, no distress, appears at stated age Derm: warm, dry Head: atraumatic, normocephalic, symmetric Eyes: EOMI, no lid lag, anicteric sclera Mouth: no lip lesion, mucus membranes moist Cardiovascular: Good distal perfusion all 4 extremities Lungs: no accessory muscle use Ext: no gross muscle atrophy, no edema, no contractures Neuro: no focal neuro deficits Psych: Alert, oriented, appropriate affect #Preeclampsia #Insulin-requiring diabetes mellitus #Acute blood loss anemia Based on my assessment of this patient, this patient meets a moderate complexity level of care. I have reviewed the following groundwater consultant notes: I have reviewed the results of the following tests: CBC shows hemoglobin of 10.1 and platelet count of 111. [id number] blood glucose obtained from her FreeStyle Dee has ranged in the 80s. She has not required any insulin since yesterday. I have ordered the following tests: None. I have discussed the care of this patient with the following independent historian: None. I have independently interpreted the following test below: None. I have discussed the management of this patient with the following physician: None. This patient has a moderate risk of morbidity due to the following reasons: Patient has an acute diagnosis of preeclampsia that poses a threat to life or bodily function. She rates her pain 0 out of 10 currently. Urinalysis shows 3+ protein, protein to creatinine ratio 3.507 and urine total protein of 452. We will continue labetalol 100 mg mouth twice a day for SBP > 160 or DBP > 90. She received 1 dose of labetalol 100 mg by mouth around 3 AM this morning for BP of 149/92. Her most recent blood pressure is 134/70. Her most recent hemoglobin A1c is 5.9. Her blood glucose has been ranging in the from 73-96. She has not received any subcutaneous insulin during this hospitalization. I will hold her long-acting insulin at this time. We'll continue low-dose sliding scale. Accu- Cheks will be ordered before meals and at bedtime along with hypoglycemic precautions. Objective - Vital Signs Vital signs: Vital Signs Temp 98.8 F 01/17/23 12:00 Pulse 82 01/17/23 12:00 Resp 18 01/17/23 12:00 BP 134/70 01/17/23 12:00 Pulse Ox 99 01/17/23 12:00 FiO2 Intake & Output 01/16/23 01/17/23 01/17/23 18:59 06:59 18:59 Intake Total 480 Output Total 1280 400 Balance -1280 -400 480 Weight 117.934 kg Intake: IV 480 Output: Urine 500 400 Uretheral (Hanna) 200 Output, Quantitative 780 Blood Loss Other: # Voids 1 1 - Labs CBC & Chem 7: 01/17/23 07:04 01/16/23 08:30 Labs: Abnormal Lab Results - Last 24 Hours (Table) 01/17/23 Range/Units 07:04 RBC 3.74 L (3.80-5.40) m/uL Hgb 10.1 L (11.4-16.0) gm/dL Hct 30.7 L (34.0-46.0) % Plt Count 111 L (150-450) k/uL
[2023-01-18] MEDS: ACETAMINOPHEN TAB 500 MG TAB PO SCH ×5 (00:20→22:07)
[2023-01-18] MEDS: IBUPROFEN 600 MG TAB PO SCH ×4 (06:01→21:30)
--- NOTE | 2023-01-18 07:29 | P.PNOBGPC ---
Subjective - Subjective Principal diagnosis: IUGR and oligohydramnios Interval history: Postop day 2. Infant is under the bili lights. Her pain is well-controlled. Patient reports: Reports appetite normal, Reports voiding normally, Reports pain well controlled, Reports ambulating normally, Denies dizzy ambulation, Denies nauseated : doing well Objective - Vital Signs Latest vital signs: Vital Signs Temp Pulse Resp BP Pulse Ox 01/18/23 00:00 97.8 F 89 16 136/89 97 01/17/23 16:00 97.8 F 72 18 138/78 98 01/17/23 12:00 98.8 F 82 18 134/70 99 01/17/23 08:00 98.0 F 78 18 137/82 98 Intake and Output 01/17/23 01/18/23 01/18/23 22:59 06:59 14:59 Intake Total 600 Balance 600 Intake: IV 600 Other: # Voids 2 1 - Exam Extremities: Present: edema Abdomen: Present: normal appearance, soft. Absent: distention, tenderness Incision: Present: normal, dry, intact. Absent: erythematous - Labs Labs: Abnormal Lab Results - Last 24 Hours (Table) 01/17/23 Range/Units 07:04 RBC 3.74 L (3.80-5.40) m/uL Hgb 10.1 L (11.4-16.0) gm/dL Hct 30.7 L (34.0-46.0) % Plt Count 111 L (150-450) k/uL Assessment and Plan (1) 36 to 37 weeks gestation of Current Visit: Yes Status: Acute Code(s): GMG8957 - SNOMED Code(s): 662292571 (2) Diabetes in Current Visit: Yes Status: Acute Code(s): O24.919 - UNSP DIABETES MELLITUS IN , UNSPECIFIED TRIMESTER SNOMED Code(s): 144946579 (3) Intrauterine growth retardation in Current Visit: Yes Status: Acute Code(s): O36.5990 - MATERN CARE FOR OTH OR SUSP POOR FETL GRTH, UNSP TRI, UNSP SNOMED Code(s): 096075706 (4) Oligohydramnios Current Visit: Yes Status: Acute Code(s): O41.00X0 - OLIGOHYDRAMNIOS, UNSP TRIMESTER, NOT APPLICABLE OR UNSP SNOMED Code(s): 70090905 (5) S/P section Current Visit: Yes Status: Acute Code(s): Z98.891 - HISTORY OF UTERINE SCAR FROM PREVIOUS SURGERY SNOMED Code(s): 270799232 (6) Unfavorable cervix in term Current Visit: Yes Status: Acute Code(s): O34.40 - MATERNAL CARE FOR OTH ABNLT OF CERVIX, UNSP TRIMESTER SNOMED Code(s): 112390419 (7) Gestational hypertension Current Visit: Yes Status: Acute Code(s): O13.9 - GESTATIONAL HTN W/O SIGNIFICANT PROTEINURIA, UNSP TRIMESTER SNOMED Code(s): 22426290 Plan: Postop day 2 status post primary low transverse section for oligohydramnios and IUGR. She is recovering well. The infant is under bilirubin lights at this time. Her milk has not yet come in and she does want to breast-feed. Anticipate discharge home tomorrow.
[2023-01-18] MEDS: SENNOSIDES-DOCUSATE SODIUM 1 EACH TAB PO SCH ×2 (08:12→21:31)
[2023-01-18] MEDS: INSULIN ASPART (NovoLOG) 100 UNIT/ML VIAL SQ SCH ×4 (08:17→21:32)
--- NOTE | 2023-01-18 11:15 | P.PN ---
Subjective Progress Note Date: 01/18/23 Patient is a 32-year-old female G1 P 0 admitted to [facility] for elective low-transverse section secondary to intrauterine growth restriction and oligohydramnios. She underwent primary low transverse section with Dr. Mello on 01/16. [facility] has been consulted for medical management of this patient with regard to elevated blood pressures and management of diabetes requiring insulin. Patient reports being diagnosed with gestational hypertension by her MFM 1 week ago. She was not started on any medication at that time. Her BP prior to surgery today was 154/100. Her BP post surgery has ranged from SBP of 166 to DBP of 102. Patient reports being diagnosed with diabetes mellitus in 2019. She follows an home companion. Prior to , she was on Lantus 35 units twice a day along with NovoLog sliding scale 3 times a day. During her , her Lantus was increased to 40 units twice a day. Her home companion told her to decrease her Lantus to 20 units twice a day post delivery. Patient was seen and examined. No acute events overnight. Patient reports 0 out of 10 pain currently. She has no complaints currently. She denies any chest pain, shortness breath, palpitations, dizziness or headache. General: non toxic, no distress, appears at stated age Derm: warm, dry Head: atraumatic, normocephalic, symmetric Eyes: EOMI, no lid lag, anicteric sclera Mouth: no lip lesion, mucus membranes moist Cardiovascular: Good distal perfusion all 4 extremities Lungs: no accessory muscle use Ext: no gross muscle atrophy, no edema, no contractures Neuro: no focal neuro deficits Psych: Alert, oriented, appropriate affect #Preeclampsia #Insulin-requiring diabetes mellitus #Acute blood loss anemia Based on my assessment of this patient, this patient meets a moderate complexity level of care. I have reviewed the following help desk consultant notes: I have reviewed the results of the following tests: [id number] blood glucose obtained from her FreeStyle Dee has ranged from 73-123 over the past 24H. She has not required any sliding scale since yesterday. I have ordered the following tests: None. I have discussed the care of this patient with the following independent historian: None. I have independently interpreted the following test below: None. I have discussed the management of this patient with the following physician: None. This patient has a moderate risk of morbidity due to the following reasons: Patient has an acute diagnosis of preeclampsia that poses a threat to life or bodily function. She rates her pain 0 out of 10 currently. Urinalysis shows 3+ protein, protein to creatinine ratio 3.507 and urine total protein of 452. We will continue labetalol 100 mg mouth twice a day for SBP > 160 or DBP > 90. She received 1 dose of labetalol 100 mg by mouth on 01/17 around 3 AM this morning for BP of 149/92. Her most recent blood pressure is 143/88. Her most recent hemoglobin A1c is 5.9. Her blood glucose has been ranging in the from 73-123. Apparently, patient has been using her Lantus at bedside. She is 20 units of Lantus at bedtime on the day of delivery. She also uses 20 units of Lantus the following morning. She increased her Lantus dose to 30 units yesterday at bedtime and this morning. Her morning Accu-Chek is 73. I would recommend using Lantus 20 units twice a day to avoid hypoglycemic episodes. Patient may also be discharged on labetalol 100 mg mouth twice a day for SBP > 160 or DBP > 90. Case management referral placed to obtain blood pressure monitor prior to discharge. Thank you for this consultation. We will continue to follow the patient peripherally. Please call [facility] with any additional questions or concerns. Objective - Vital Signs Vital signs: Vital Signs Temp 98.0 F 01/18/23 08:00 Pulse 86 01/18/23 08:00 Resp 18 01/18/23 08:00 BP 143/88 01/18/23 08:00 Pulse Ox 97 01/18/23 08:00 FiO2 Intake & Output 01/17/23 01/18/23 01/18/23 18:59 06:59 18:59 Intake Total 1080 Balance 1080 Intake: IV 1080 Other: Voiding Method Toilet # Voids 2 1 1 - Labs CBC & Chem 7: 01/17/23 07:04 01/16/23 08:30
[2023-01-18] MEDS: LABETALOL 100 MG TAB PO PRN (15:50)
[2023-01-19 00:56] VITALS: RESP 16
[2023-01-19] MEDS: IBUPROFEN 600 MG TAB PO SCH ×2 (02:07→08:02)
[2023-01-19] MEDS: ACETAMINOPHEN TAB 500 MG TAB PO SCH ×2 (08:01→09:42)
[2023-01-19] MEDS: SENNOSIDES-DOCUSATE SODIUM 1 EACH TAB PO SCH (08:02)
[2023-01-19] MEDS: INSULIN ASPART (NovoLOG) 100 UNIT/ML VIAL SQ SCH (08:02)
[2023-01-19 08:04] VITALS: BP 142/92; PULSE 93; TEMP 98.5
--- NOTE | 2023-01-19 10:44 | P.DS ---
Providers Date of admission: 01/16/23 08:04 Expected date of discharge: 01/19/23 Attending physician: Herbert Mello Consults: 01/16/23 14:09 Consult Physician Urgent Consulting Provider: Trinidad Reynaga Consult Reason/Comments: elevated blood pressures Do you want consulting provider notified?: Yes Primary care physician: Stated None - Discharge Diagnosis(es) (1) Unfavorable cervix in term Current Visit: Yes Status: Acute (2) Oligohydramnios Current Visit: Yes Status: Acute (3) Intrauterine growth retardation in Current Visit: Yes Status: Acute (4) 36 to 37 weeks gestation of Current Visit: Yes Status: Acute (5) S/P section Current Visit: Yes Status: Acute Hospital Course: the patient is a 32-year-old 1 para 0 admitted at 36-2/7 weeks by in vitro dating. She is admitted for a elective primary low-transverse section secondary to the diagnosis of intrauterine growth restriction with growth at 2nd percentile and now with acute oligohydramnios. She is also known to have insulin dependent diabetes for which she has had good blood sugar control throughout the . She additionally has had random episodes of vaginal bleeding thought to likely be marginal abruption of the placenta which uncomplicated as well. Given the oligohydramnios with IUGR and now greater than 36 weeks and having received steroids during the , the decision was made to proceed with delivery. As she is significantly remote from delivery with an unfavorable cervix and the situation unlikely to tolerate labor, the decision was made to proceed with a primary low-transverse section. She was taken the operating room where she was delivered of a viable 4 lbs. 5 oz. baby boy with Apgars of 8 at 1 minute and 8 at 5 minutes. Her course was unremarkable vital signs being stable and her temperature was afebrile throughout. She was deemed stable for discharge on postoperative and day #3. She was discharged home to follow-up in the office in 2 weeks for an incision check and 6 weeks routinely. She did have some mildly elevated blood pressures both immediately prior to delivery and following delivery which were managed with labetalol 100 mg twice daily. She only required 1 dose of this and has since been followed conservatively. Laboratory workup for preeclampsia was negative. Internal medicine consultation was sought to manage blood pressures should it become more complicated. Discharge instructions included calling for any significantly increased bleeding or foul- smelling lochia, significantly increased fever abdominal pain, perineal complaints, breast complaints, incisional complaints, or anything else that concerned her. She is additionally instructed to have nothing in the vagina for at least 6 weeks time to include intercourse. She was instructed to do no heavy lifting and to abstain from driving until off of all pain medications or 2 weeks' time, whichever came first. She understood all of her instructions and agrees to follow up as noted above. Discharge medications included only [id number] analgesic pain medications and continued vitamins as she has opted to breast-feed. Maternal blood type is A+ and rubella status is immune. Procedures: #1. Primary low-transverse section #2. Internal medicine consultation Patient Condition at Discharge: Stable Plan - Discharge Summary Discharge Rx Participant: Yes New Discharge Prescriptions: No Action metFORMIN HCL 1,000 mg PO BID Vit No.179/Iron/Folic [ Tablet] 1 tablet DAILY [place]-3/Dha/Epa/Fish Oil [Fish Oil 500 mg Softgel] 1 capsule DAILY Insulin Lispro Rx Scale Form [humaLOG Outpatient Scale Rx Form] 80 units SQ DAILY Insulin Glargine [Lantus Vial] 80 units SQ ACHS Folic Acid 1 tablet DAILY Cholecalciferol [Vitamin D3 (25 Mcg = 1000 Iu)] 1,000 units DAILY Aspirin [Adult Low Dose Aspirin EC] 1 tablet DAILY Discharge Medication List Aspirin [Adult Low Dose Aspirin EC] 1 tablet DAILY 12/18/22 [History] Cholecalciferol [Vitamin D3 (25 Mcg = 1000 Iu)] 1,000 units DAILY 12/18/22 [History] Folic Acid 1 tablet DAILY 12/18/22 [History] Insulin Glargine [Lantus Vial] 80 units SQ ACHS 12/18/22 [History] Insulin Lispro Rx Scale Form [humaLOG Outpatient Scale Rx Form] 80 units SQ DAILY 12/18/22 [History] [place]-3/Dha/Epa/Fish Oil [Fish Oil 500 mg Softgel] 1 capsule DAILY 12/18/22 [History] Vit No.179/Iron/Folic [ Tablet] 1 tablet DAILY 12/18/22 [History] metFORMIN HCL 1,000 mg PO BID 12/18/22 [History] Follow up Appointment(s)/Referral(s): Herbert Mello MD [STAFF PHYSICIAN] - 2 Weeks Discharge Disposition: HOME SELF-CARE
== END 2023-01-19 12:30 | disposition home or self-care (01) | DRG 786 ==
LOC: 4FBP 08:04
PROVIDERS: ADMIT Obstetrics & Gynecology; ATTEND Obstetrics & Gynecology
PROC: 10D00Z1 Extraction of Products of Conception, Low, Open Approach (ICD-10-PCS; principal; 2023-01-16 10:00)
DX: O41.03X0 Oligohydramnios, third trimester, not applicable or unspecified (principal); O45.93 Premature separation of placenta, unspecified, third trimester; D62 Acute posthemorrhagic anemia; O36.5930 Maternal care for other known or suspected poor fetal growth, third trimester, not applicable or unspecified; O24.92 Unspecified diabetes mellitus in childbirth; O14.94 Unspecified pre-eclampsia, complicating childbirth; O77.0 Labor and delivery complicated by meconium in amniotic fluid; Z37.0 Single live birth; Z3A.37 37 weeks gestation of pregnancy; Z79.4 Long term (current) use of insulin; Z79.82 Long term (current) use of aspirin; Z79.84 Long term (current) use of oral hypoglycemic drugs
CPT/HCPCS: 81001; 82565; 82570; 83036; 83615; 84156; 84450; 84460; 84520; 84550; 85025; 85610; 85730; 86850; 86900; 86901; 88307

== ENCOUNTER 2024-05-05 05:04 | Emergency (ER) | payer BC ==
[2024-05-05] MEDS: SODIUM CHLORIDE 0.9% 1,000 ML IV STA (05:36)
[2024-05-05 05:38] LABS: Basophils % (A) 0 %; Eosinophils % (A) 0 %; HGB 13.6 gm/dL (11.4-16.0); Lymphocytes % (A) 13 %; MCH 27.3 pg (25.0-35.0); MCHC 33.1 g/dL (31.0-37.0); MCV 82.6 fL (80.0-100.0); Mean Platelet Volume 8.6; Monocytes # (A) 0.5 k/uL (0-1.0); Monocytes % (A) 6 %; Neutrophils # (A) 6.3 k/uL (1.3-7.7); Neutrophils % (A) 79 %; Platelet Count 101 k/uL (150-450); RBC 4.96 m/uL (3.80-5.40); RDW 13.7 % (11.5-15.5); WBC 7.9 k/uL (3.8-10.6)
[2024-05-05] MEDS: ONDANSETRON 4 MG/2 ML VIAL IVP STA (05:40)
[2024-05-05 05:53] LABS: INR 1.1 (<1.2); Partial Thromboplastin Time 25.2 sec (22.0-30.0); Prothrombin Time 11.6 sec (10.0-12.5)
--- NOTE | 2024-05-05 05:54 | XR ---
EXAMINATION TYPE: XR chest 2V DATE OF EXAM: 05/05/2024 COMPARISON: Prior chest x-ray from 2020 HISTORY: Syncope TECHNIQUE: Frontal and lateral views of the chest are obtained. FINDINGS: There is no suspicious focal air space opacity, pleural effusion, or pneumothorax seen. T he cardiac silhouette size remains within normal limits. Overlying bra strap is seen. The osseous s tructures are intact. IMPRESSION: No acute cardiopulmonary process.
[2024-05-05 05:55] LABS: ALT 19 U/L (4-34); AST 27 U/L (14-36); African American GFR (CKD) >90 (>60 ml/min/1.73 sqM); Albumin 4.2 g/dL (3.5-5.0); Alkaline Phosphatase 85 U/L (38-126); Anion Gap 10 mmol/L; Blood Urea Nitrogen 13 mg/dL (7-17); Calcium 8.8 mg/dL (8.4-10.2); Carbon Dioxide 23 mmol/L (22-30); Chloride 102 mmol/L (98-107); Glucose 217 mg/dL (74-99); Magnesium 1.7 mg/dL (1.6-2.3); Non-African American GFR(CKD) >90 (>60 ml/min/1.73 sqM); Potassium 4.2 mmol/L (3.5-5.1); Sodium 135 mmol/L (137-145); Total Bilirubin 1.5 mg/dL (0.2-1.3); Total Protein 6.9 g/dL (6.3-8.2)
--- NOTE | 2024-05-05 05:56 | ED ---
Back Pain HPI - General Source: patient Limitations: no limitations - History of Present Illness Complaint: back pain -: hour(s) Similar Symptoms Previously: No Place: home Radiation: none Severity: moderate Quality: aching Consistency: constant Improves With: none Worsens With: none Associated Symptoms: syncope <Vaibhav Vides - Last Filed: 05/05/24 07:06> <Isabela Reed Laure - Last Filed: 05/09/24 01:01> - General Chief Complaint: Back Pain/Injury Stated Complaint: Lft Side Pain, Passing Out Time Seen by Provider: 05/05/24 05:15 - History of Present Illness Initial Comments: This patient is a 33-year-old woman who presents to have evaluation for her left lower back pain. Patient states that the pain had come on tonight. She describes it as sharp and aching. She has not noted worsening or relieving factors. She cannot relate any inciting event. Patient does note that yesterday she had a syncopal episode. She had gotten up to use the bathroom and then felt lightheaded and passed out. She did strike her left forehead. The patient was seen at an urgent care, where she was told that she had probably developed urinary tract infection. Patient denies urinary symptoms, no frequency, urgency, dysuria or hematuria. (Vaibhav Vides) - Related Data Home Medications Medication Instructions Recorded Confirmed metFORMIN HCL 1,000 mg PO BID 12/18/22 05/05/24 Insulin Glargine,Hum.rec.anlog 35 units SQ DAILY 05/05/24 05/05/24 [Lantus Solostar Pen] Insulin Lispro [humaLOG Kwikpen] See Protocol SQ AC-TID PRN 05/05/24 05/05/24 Norethindrone [Patricia] 0.35 mg PO DAILY 05/05/24 05/05/24 Rosuvastatin [Crestor] 10 mg PO DIRECTED 05/05/24 05/05/24 Tirzepatide [Mounjaro] 7.5 mg SQ WE 05/05/24 05/05/24 lisinopriL [Zestril] 2.5 mg PO DIRECTED 05/05/24 05/05/24 Previous Rx's Medication Instructions Recorded Cephalexin [Keflex] 500 mg PO Q6HR 1 Days #28 cap 05/05/24 Fluconazole [Diflucan] 150 mg PO DAILY #2 tab 05/05/24 Ketorolac [Toradol] 10 mg PO Q8HR PRN #15 tab 05/05/24 Ondansetron Odt [Zofran Odt] 4 mg PO Q8HR PRN #30 tab 05/05/24 Tamsulosin [Flomax] 0.4 mg PO DAILY #7 cap 05/05/24 Allergies Allergy/AdvReac Type Severity Reaction Status Date / Time No Known Allergies Allergy Verified 05/05/24 09:41 Review of Systems ROS Other: All systems not noted in ROS Statement are negative. Constitutional: Denies: fever, chills, weakness Respiratory: Denies: cough, dyspnea Cardiovascular: Denies: chest pain, palpitations, edema Gastrointestinal: Denies: abdominal pain, nausea, vomiting, diarrhea Genitourinary: Denies: dysuria, frequency, hematuria Musculoskeletal: Reports: as per HPI, back pain Skin: Denies: rash Neurological: Denies: headache, weakness, numbness, paresthesias <Vaibhav Vides - Last Filed: 05/05/24 07:06> ROS Other: All systems not noted in ROS Statement are negative. <Isabela Reed - Last Filed: 05/09/24 01:01> ROS Statement: Those systems with pertinent positive or pertinent negative responses have been documented in the HPI. Past Medical History Past Medical History: Diabetes Mellitus Additional Past Medical History / Comment(s): PCOS, History of Any Multi-Drug Resistant Organisms: None Reported Past Surgical History: No Surgical Hx Reported, Section Additional Past Surgical History / Comment(s): hysteroscopy and egg retreval 2021 Past Anesthesia/Blood Transfusion Reactions: No Reported Reaction Past Psychological History: No Psychological Hx Reported Smoking Status: Never smoker Past Alcohol Use History: None Reported Past Drug Use History: None Reported <Vaibhav Vides - Last Filed: 05/05/24 07:06> General Exam Limitations: no limitations General appearance: alert, in no apparent distress Head exam: Present: atraumatic, normocephalic Eye exam: Present: normal appearance. Absent: scleral icterus, conjunctival injection Neck exam: Present: normal inspection Respiratory exam: Present: normal lung sounds bilaterally. Absent: respiratory distress, wheezes, rales, rhonchi, stridor, accessory muscle use Cardiovascular Exam: Present: regular rate, normal rhythm, normal heart sounds. Absent: systolic murmur, diastolic murmur, rubs, gallop GI/Abdominal exam: Present: soft. Absent: distended, tenderness, guarding, rebound, rigid, mass Extremities exam: Present: normal inspection, normal capillary refill. Absent: pedal edema, calf tenderness Back exam: Present: normal inspection. Absent: CVA tenderness (R), CVA tenderness (L), muscle spasm, paraspinal tenderness, vertebral tenderness, rash noted Neurological exam: Present: alert. Absent: motor sensory deficit Skin exam: Present: warm, dry, intact, normal color. Absent: rash <Vaibhav Vides - Last Filed: 05/05/24 07:06> Course Vital Signs 05/05/24 05/05/24 05/05/24 05:06 05:31 10:05 Temperature 98.0 F Pulse Rate 73 66 82 Respiratory 18 20 16 Rate Blood Pressure 128/78 120/81 121/83 O2 Sat by Pulse 98 97 99 Oximetry 05/05/24 11:37 Temperature 98.3 F Pulse Rate 96 Respiratory 16 Rate Blood Pressure 110/64 O2 Sat by Pulse 99 Oximetry Medical Decision Making - Lab Data Result diagrams: 05/05/24 05:31 05/05/24 05:31 - EKG Data -: EKG Interpreted by Me EKG shows normal: sinus rhythm (Sinus arrhythmia), axis (normal), intervals (normal), QRS complexes (normal), ST-T waves (normal) Rate: normal (Rate 72 bpm) Interpretation: normal EKG <Vaibhav Vides - Last Filed: 05/05/24 07:06> - Lab Data Result diagrams: 05/05/24 05:31 05/05/24 05:31 <Isabela Reed - Last Filed: 05/09/24 01:01> - Medical Decision Making This patient had 2 view chest x-ray that I interpreted as negative for acute infiltrate, pneumothorax, congestive heart failure (Vaibhav Vides) Was patient admitted / discharged? Hospital course, mention meds given and route, prescriptions, significant lab abnormalities, going to OR and other pertinent info. @ -Patient was evaluated by myself and signed out to me from Dr. Ro. I ordered a CT of the patient's brain due to her visible head injury with vomiting and headache. I also performed a CT of her abdomen pelvis because of her left- sided flank pain. CT the brain is negative for acute process. CT of the abdomen is positive for kidney stone. She is given Toradol for pain control and does have improvement in her pain. I did discuss the diagnosis, differential treatment options. Patient comfortable going home at this time. Will be given a prescription for Toradol, Zofran, Flomax. She is to increase fluid intake. Strain all of her urine. Follow-up with her primary care doctor and return for any new or worsening symptoms. Patient was agreeable to plan she was discharged in stable condition Undiagnosed new problem with uncertain prognosis? @ -No Drug Therapy requiring intensive monitoring for toxicity (Heparin, Nitro, Insulin, Cardizem)? @ -No Were any procedures done? @ -No Diagnosis/symptom? @ -Acute left flank pain, acute ureteral stone, syncope with head injury Acute, or Chronic, or Acute on Chronic? @ -Acute Uncomplicated (without systemic symptoms) or Complicated (systemic symptoms)? @ -Complicated Side effects of treatment? @ -No Exacerbation, Progression, or Severe Exacerbation? @ -No Poses a threat to life or bodily function? How? (Chest pain, USA, SD, pneumonia, PE, COPD, DKA, ARF, appy, cholecystitis, CVA, Diverticulitis, Homicidal, Suicidal, threat to staff... and all critical care pts) @ -No (Isabela Reed) - Lab Data Lab Results 05/05/24 05/05/24 05/05/24 Range/Units 05:31 05:31 05:31 WBC 7.9 (3.8-10.6) k/uL RBC 4.96 (3.80-5.40) m/uL Hgb 13.6 (11.4-16.0) gm/dL Hct 41.0 (34.0-46.0) % MCV 82.6 (80.0-100.0) fL MCH 27.3 (25.0-35.0) pg MCHC 33.1 (31.0-37.0) g/dL RDW 13.7 (11.5-15.5) % Plt Count 101 L (150-450) k/uL MPV 8.6 Neutrophils % 79 % Lymphocytes % 13 % Monocytes % 6 % Eosinophils % 0 % Basophils % 0 % Neutrophils # 6.3 (1.3-7.7) k/uL Lymphocytes # 1.0 (1.0-4.8) k/uL Monocytes # 0.5 (0-1.0) k/uL Eosinophils # 0.0 (0-0.7) k/uL Basophils # 0.0 (0-0.2) k/uL PT 11.6 (10.0-12.5) sec INR 1.1 (<1.2) APTT 25.2 (22.0-30.0) sec D-Dimer 0.39 (<0.60) mg/L FEU Sodium 135 L (137-145) mmol/L Potassium 4.2 (3.5-5.1) mmol/L Chloride 102 (98-107) mmol/L Carbon Dioxide 23 (22-30) mmol/L Anion Gap 10 mmol/L BUN 13 (7-17) mg/dL Creatinine 0.85 (0.52-1.04) mg/dL Est GFR (CKD-EPI)AfAm >90 (>60 ml/min/1.73 sqM) Est GFR (CKD-EPI)NonAf >90 (>60 ml/min/1.73 sqM) Glucose 217 H (74-99) mg/dL Calcium 8.8 (8.4-10.2) mg/dL Magnesium 1.7 (1.6-2.3) mg/dL Total Bilirubin 1.5 H (0.2-1.3) mg/dL AST 27 (14-36) U/L ALT 19 (4-34) U/L Alkaline Phosphatase 85 (38-126) U/L Troponin I (0.000-0.034) ng/mL Total Protein 6.9 (6.3-8.2) g/dL Albumin 4.2 (3.5-5.0) g/dL Urine Color Urine Appearance (Clear) Urine pH (5.0-8.0) Ur Specific [place] (1.001-1.035) Urine Protein (Negative) Urine Glucose (UA) (Negative) Urine Ketones (Negative) Urine Blood (Negative) Urine Nitrite (Negative) Urine Bilirubin (Negative) Urine Urobilinogen (<2.0) mg/dL Ur Leukocyte Esterase (Negative) Urine RBC (0-5) /hpf Urine WBC (0-5) /hpf Ur Squamous Epith Cells (0-4) /hpf Urine Bacteria (None) /hpf Hyaline Casts (0-2) /lpf Urine Mucus (None) /hpf Urine HCG, Qual (Not Detectd) 05/05/24 05/05/24 05/05/24 Range/Units 05:31 06:35 06:35 WBC (3.8-10.6) k/uL RBC (3.80-5.40) m/uL Hgb (11.4-16.0) gm/dL Hct (34.0-46.0) % MCV (80.0-100.0) fL MCH (25.0-35.0) pg MCHC (31.0-37.0) g/dL RDW (11.5-15.5) % Plt Count (150-450) k/uL MPV Neutrophils % % Lymphocytes % % Monocytes % % Eosinophils % % Basophils % % Neutrophils # (1.3-7.7) k/uL Lymphocytes # (1.0-4.8) k/uL Monocytes # (0-1.0) k/uL Eosinophils # (0-0.7) k/uL Basophils # (0-0.2) k/uL PT (10.0-12.5) sec INR (<1.2) APTT (22.0-30.0) sec D-Dimer (<0.60) mg/L FEU Sodium (137-145) mmol/L Potassium (3.5-5.1) mmol/L Chloride (98-107) mmol/L Carbon Dioxide (22-30) mmol/L Anion Gap mmol/L BUN (7-17) mg/dL Creatinine (0.52-1.04) mg/dL Est GFR (CKD-EPI)AfAm (>60 ml/min/1.73 sqM) Est GFR (CKD-EPI)NonAf (>60 ml/min/1.73 sqM) Glucose (74-99) mg/dL Calcium (8.4-10.2) mg/dL Magnesium (1.6-2.3) mg/dL Total Bilirubin (0.2-1.3) mg/dL AST (14-36) U/L ALT (4-34) U/L Alkaline Phosphatase (38-126) U/L Troponin I <0.012 (0.000-0.034) ng/mL Total Protein (6.3-8.2) g/dL Albumin (3.5-5.0) g/dL Urine Color Yellow Urine Appearance Cloudy H (Clear) Urine pH 5.5 (5.0-8.0) Ur Specific [place] 1.022 (1.001-1.035) Urine Protein 1+ H (Negative) Urine Glucose (UA) 3+ H (Negative) Urine Ketones 2+ H (Negative) Urine Blood Large H (Negative) Urine Nitrite Positive H (Negative) Urine Bilirubin Negative (Negative) Urine Urobilinogen <2.0 (<2.0) mg/dL Ur Leukocyte Esterase Moderate H (Negative) Urine RBC 30 H (0-5) /hpf Urine WBC 26 H (0-5) /hpf Ur Squamous Epith Cells 40 H (0-4) /hpf Urine Bacteria Few H (None) /hpf Hyaline Casts 3 H (0-2) /lpf Urine Mucus Few H (None) /hpf Urine HCG, Qual Not Detected (Not Detectd) 05/05/24 Range/Units 09:44 WBC (3.8-10.6) k/uL RBC (3.80-5.40) m/uL Hgb (11.4-16.0) gm/dL Hct (34.0-46.0) % MCV (80.0-100.0) fL MCH (25.0-35.0) pg MCHC (31.0-37.0) g/dL RDW (11.5-15.5) % Plt Count (150-450) k/uL MPV Neutrophils % % Lymphocytes % % Monocytes % % Eosinophils % % Basophils % % Neutrophils # (1.3-7.7) k/uL Lymphocytes # (1.0-4.8) k/uL Monocytes # (0-1.0) k/uL Eosinophils # (0-0.7) k/uL Basophils # (0-0.2) k/uL PT (10.0-12.5) sec INR (<1.2) APTT (22.0-30.0) sec D-Dimer (<0.60) mg/L FEU Sodium (137-145) mmol/L Potassium (3.5-5.1) mmol/L Chloride (98-107) mmol/L Carbon Dioxide (22-30) mmol/L Anion Gap mmol/L BUN (7-17) mg/dL Creatinine (0.52-1.04) mg/dL Est GFR (CKD-EPI)AfAm (>60 ml/min/1.73 sqM) Est GFR (CKD-EPI)NonAf (>60 ml/min/1.73 sqM) Glucose (74-99) mg/dL Calcium (8.4-10.2) mg/dL Magnesium (1.6-2.3) mg/dL Total Bilirubin (0.2-1.3) mg/dL AST (14-36) U/L ALT (4-34) U/L Alkaline Phosphatase (38-126) U/L Troponin I (0.000-0.034) ng/mL Total Protein (6.3-8.2) g/dL Albumin (3.5-5.0) g/dL Urine Color Yellow Urine Appearance Clear (Clear) Urine pH 5.5 (5.0-8.0) Ur Specific [place] 1.018 (1.001-1.035) Urine Protein Trace H (Negative) Urine Glucose (UA) 3+ H (Negative) Urine Ketones 1+ H (Negative) Urine Blood Moderate H (Negative) Urine Nitrite Positive H (Negative) Urine Bilirubin Negative (Negative) Urine Urobilinogen <2.0 (<2.0) mg/dL Ur Leukocyte Esterase Negative (Negative) Urine RBC 7 H (0-5) /hpf Urine WBC 3 (0-5) /hpf Ur Squamous Epith Cells 2 (0-4) /hpf Urine Bacteria Few H (None) /hpf Hyaline Casts 1 (0-2) /lpf Urine Mucus Occasional H (None) /hpf Urine HCG, Qual (Not Detectd) Disposition Is patient prescribed a controlled substance at d/c from ED?: No <Vaibhav Vides - Last Filed: 05/05/24 07:06> Is patient prescribed a controlled substance at d/c from ED?: No Time of Disposition: 10:51 <Isabela Reed - Last Filed: 05/09/24 01:01> Clinical Impression: Syncopal episodes, Flank pain, Ureteral stone Disposition: HOME SELF-CARE Condition: Good Instructions (If sedation given, give patient instructions): Kidney Stones (ED), Syncope (ED) Additional Instructions: Please take the medications as directed. Strain all of your urine. Follow-up with your primary care doctor. You need Holter monitoring and an echo. No driving until your symptoms improve. Return for any new or worsening symptoms to include fevers or uncontrolled pain Prescriptions: Fluconazole [Diflucan] 150 mg PO DAILY #2 tab Tamsulosin [Flomax] 0.4 mg PO DAILY #7 cap Cephalexin [Keflex] 500 mg PO Q6HR 1 Days #28 cap Ketorolac [Toradol] 10 mg PO Q8HR PRN #15 tab PRN Reason: Pain Ondansetron Odt [Zofran Odt] 4 mg PO Q8HR PRN #30 tab PRN Reason: Nausea Referrals: Eulalio Almanzar MD [Primary Care Provider] - 1-2 days Tang Ash MD [STAFF PHYSICIAN] - 1-2 days
[2024-05-05] MEDS: MORPHINE SULFATE 4 MG/ML SYRINGE IV STA (06:02)
[2024-05-05 07:22] LABS: Appearance,Urine Cloudy (Clear); Bacteria,Urine Few /hpf; Bilirubin,Urine Negative (Negative); Blood,Urine Large (Negative); Color,Urine Yellow; Glucose,Urine (UA) 3+ (Negative); Hyaline Casts,Urine 3 /lpf (0-2); Leukocyte Esterase,Urine Moderate (Negative); Mucus,Urine Few /hpf; Nitrite,Urine Positive (Negative); PH, Urine 5.5 (5.0-8.0); Protein,Urine 1+ (Negative); RBC,Urine 30 /hpf (0-5); Specific Gravity,Urine 1.022 (1.001-1.035); Squamous Epithelial Cell,Urine 40 /hpf (0-4); Urobilinogen,Urine <2.0 mg/dL (<2.0); WBC,Urine 26 /hpf (0-5)
[2024-05-05 07:25] LABS: Ketones,Urine 2+ (Negative)
--- NOTE | 2024-05-05 08:42 | CT ---
EXAMINATION TYPE: CT abdomen pelvis wo con DATE OF EXAM: 05/05/2024 COMPARISON: None HISTORY: 33-year-old female left flank pain CT DLP: 1044.6 mGycm. Automated exposure control for dose reduction was used. TECHNIQUE: Contiguous axial scanning of the abdomen and pelvis without IV contrast. Coronal and sagit shaun reconstructions performed. FINDINGS: Heart normal size without pericardial effusion. Lung bases clear without pleural effusion. Liver enlarged at 20.3 cm with diminished attenuation. Spleen enlarged at 15.9 cm. Tiny hilar splenul e. There is a tiny hiatal hernia present. Gallbladder, right adrenal gland, right kidney, and pancreas within normal limits. There is an area of 1.2 cm nodularity left adrenal gland. There is mild left-sided hydronephrosis with a punctate 3.5 mm stone at the upper left ureter just be yond the UPJ. No dilated small bowel, free fluid, or free air. No mesenteric or retroperitoneal lymphadenopathy. Mild stool burden. Normal appendix. Mild mid sigmoid diverticulosis. No pericolonic inflammatory sanchez ge. Bladder partially distended. Uterus anteverted. Follicular changes in the ovaries. No abnormal fluid collection in the pelvis or pelvic lymphadenopathy. Bones: No osseous structure process. IMPRESSION: 1. A 3.5 mm stone at the upper left ureter with mild obstructive uropathy. 2. Hepatosplenomegaly (liver 20.3 cm and spleen 15.9 cm). At least moderate hepatic steatosis. Appro priate clinical management is advised. 3. A tiny 1.2 cm nodule left adrenal gland statistically represents a benign adrenal adenoma. Endocr inology follow-up if clinically indicated. Otherwise a 12 month follow-up CT can be performed. 4. Mild sigmoid diverticulosis.
--- NOTE | 2024-05-05 08:55 | CT ---
EXAMINATION TYPE: CT brain wo con DATE OF EXAM: 05/05/2024 COMPARISON: None HISTORY: 33-year-old female syncope, hit head TECHNIQUE: Examination was done in axial plane without intravenous contrast. Coronal and sagittal r econstructions performed. CT DLP: 2133.4 mGycm Automated exposure control for dose reduction was used. FINDINGS: There is no evidence of acute intracranial hemorrhage, acute ischemic changes, mass, mass-effect, or extra-axial fluid collection. There is no effacement of cerebral sulci or basal subarachnoid cister ns. There is no hydrocephalus. There is no midline shift. Benz-white matter distinction is preserv ed. Minimal 3 mm of cerebellar tonsillar ectopia. Findings compatible with benign tonsillar ectopia. Paranasal sinuses and mastoid air cells well pneumatized. Orbits and globes are intact. IMPRESSION: No acute intracranial abnormality seen.
[2024-05-05] MEDS: KETOROLAC 15 MG/ML 1 ML VIAL IVP STA (09:21)
[2024-05-05] MEDS: SODIUM CHLORIDE 0.9% 1,000 ML IV ONE (09:23)
[2024-05-05 09:58] LABS: Appearance,Urine Clear (Clear); Bacteria,Urine Few /hpf; Bilirubin,Urine Negative (Negative); Blood,Urine Moderate (Negative); Color,Urine Yellow; Glucose,Urine (UA) 3+ (Negative); Hyaline Casts,Urine 1 /lpf (0-2); Ketones,Urine 1+ (Negative); Leukocyte Esterase,Urine Negative (Negative); Mucus,Urine Occasional /hpf; Nitrite,Urine Positive (Negative); PH, Urine 5.5 (5.0-8.0); Protein,Urine Trace (Negative); RBC,Urine 7 /hpf (0-5); Specific Gravity,Urine 1.018 (1.001-1.035); Squamous Epithelial Cell,Urine 2 /hpf (0-4); Urobilinogen,Urine <2.0 mg/dL (<2.0); WBC,Urine 3 /hpf (0-5)
[2024-05-05 10:30] VITALS: RESP 16
[2024-05-05] MEDS: cefTRIAXone IN SWFI 1,000 MG/10 ML SYRINGE IVP STA (10:40)
[2024-05-05] MEDS: TAMSULOSIN 0.4 MG CAP.ER.24H PO STA (10:42)
[2024-05-05 11:38] VITALS: BP 110/64; PULSE 96; TEMP 98.3
== END 2024-05-05 11:38 | disposition home or self-care (01) ==
LOC: EC 05:04
DX: N20.1 Calculus of ureter (principal); K57.30 Diverticulosis of large intestine without perforation or abscess without bleeding; K76.0 Fatty (change of) liver, not elsewhere classified
CPT/HCPCS: 36415; 93005; 85379; 80053; 83735; 84484; 85025; 85610; 85730; 81001; 81025; 71046; 70450; 74176; 99285; 96374; 96375 ×3; 96361 ×2; J2270; J2405; J0696; J1885

== ENCOUNTER 2025-03-21 22:02 | Emergency (ER) | payer BC ==
[2025-03-21 22:08] VITALS: RESP 18; TEMP 98.2
[2025-03-21 22:57] LABS: HCT 36.5 % (37.2-46.3); HGB 12.1 g/dL (12.0-15.0); Immature Platelet Fraction 1.7 % (1.1-6.1); MCH 27.1 pg (27.0-32.0); MCHC 33.2 g/dL (32.0-37.0); MCV 81.8 fL (80.0-97.0); Mean Platelet Volume 9.9 fL (9.5-12.2); Platelet Count 104 10*3/uL (140-440); RBC 4.46 10*6/uL (4.10-5.20); RDW 14.6 % (11.5-14.5); WBC 8.27 10*3/uL (4.50-10.00)
--- NOTE | 2025-03-21 22:57 | ED ---
General Adult HPI - General Chief complaint: OB/Uterine Contractions Stated complaint: poss 8 weeks preg, cramping Time Seen by Provider: 03/21/25 22:26 Source: patient Mode of arrival: ambulatory Limitations: no limitations - History of Present Illness Initial comments: 34-year-old female presenting with chief complaint of pelvic cramping. Patient reports that yesterday she was having some cramping similar to menstrual cramps, she took a test which was positive. Today she states that the cramping is sharp and much more severe. This is mostly centralized in the pelvis. She is having no vaginal bleeding. She is a G2, P1, history of IVF. No dysuria or flank pain. No nausea or vomiting. - Related Data Home Medications Medication Instructions Recorded Confirmed metFORMIN HCL 1,000 mg PO BID 12/18/22 05/05/24 Insulin Glargine,Hum.rec.anlog 35 units SQ DAILY 05/05/24 05/05/24 [Lantus Solostar Pen] Insulin Lispro [humaLOG Kwikpen] See Protocol SQ AC-TID PRN 05/05/24 05/05/24 Norethindrone [Patricia] 0.35 mg PO DAILY 05/05/24 05/05/24 Rosuvastatin [Crestor] 10 mg PO DIRECTED 05/05/24 05/05/24 Tirzepatide [Mounjaro] 7.5 mg SQ WE 05/05/24 05/05/24 lisinopriL [Zestril] 2.5 mg PO DIRECTED 05/05/24 05/05/24 Previous Rx's Medication Instructions Recorded Cephalexin [Keflex] 500 mg PO Q6HR 1 Days #28 cap 05/05/24 Fluconazole [Diflucan] 150 mg PO DAILY #2 tab 05/05/24 Ketorolac [Toradol] 10 mg PO Q8HR PRN #15 tab 05/05/24 Ondansetron Odt [Zofran Odt] 4 mg PO Q8HR PRN #30 tab 05/05/24 Tamsulosin [Flomax] 0.4 mg PO DAILY #7 cap 05/05/24 Allergies Allergy/AdvReac Type Severity Reaction Status Date / Time No Known Allergies Allergy Verified 03/21/25 22:08 Review of Systems ROS Statement: Those systems with pertinent positive or pertinent negative responses have been documented in the HPI. ROS Other: All systems not noted in ROS Statement are negative. Past Medical History Past Medical History: Diabetes Mellitus Additional Past Medical History / Comment(s): PCOS, History of Any Multi-Drug Resistant Organisms: None Reported Past Surgical History: No Surgical Hx Reported, Section Additional Past Surgical History / Comment(s): hysteroscopy and egg retreval 20 22 Past Anesthesia/Blood Transfusion Reactions: No Reported Reaction Past Psychological History: No Psychological Hx Reported Smoking Status: Never smoker Past Alcohol Use History: None Reported Past Drug Use History: None Reported General Exam Limitations: no limitations General appearance: alert, in no apparent distress Head exam: Present: atraumatic, normocephalic, normal inspection Eye exam: Present: normal appearance, EOMI Neck exam: Present: normal inspection. Absent: meningismus Respiratory exam: Absent: respiratory distress Cardiovascular Exam: Present: tachycardia GI/Abdominal exam: Present: soft, tenderness. Absent: distended, guarding, servando ound, rigid Neurological exam: Present: alert, oriented X3 Psychiatric exam: Present: normal affect, normal mood Skin exam: Present: warm, dry, normal color Course Vital Signs 03/21/25 03/21/25 03/22/25 22:06 23:15 01:04 Temperature 98.2 F 98.2 F Pulse Rate 121 H 110 H 89 Respiratory 18 18 18 Rate Blood Pressure 108/71 116/77 110/80 O2 Sat by Pulse 97 98 100 Oximetry Medical Decision Making - Medical Decision Making Was pt. sent in by a medical professional or institution (, PA, CHOIR LEADER, urgent care, hospital, or [facility]...) When possible be specific @ -No Did you speak to anyone other than the patient for history (EMS, parent, family, police, friend...)? What history was obtained from this source @ -No Did you review nursing and triage notes (agree or disagree)? Why? @ -I reviewed and agree with nursing and triage notes Were old charts reviewed (outside hosp., previous admission, EMS record, old EKG, old radiological studies, urgent care reports/EKG's, [facility] records)? Report findings @ -No old charts were reviewed Differential Diagnosis (chest pain, altered mental status, abdominal pain women, abdominal pain men, vaginal bleeding, weakness, fever, dyspnea, syncope, headache, dizziness, GI bleed, back pain, seizure, CVA, palpatations, mental health, musculoskeletal)? @ -MDM Differential Abdominal Pain Women: Appendicitis, Cholecystitis, diverticulosis, ischemic bowel, pancreatitis, hepatitis, UTI, gastroenteritis, AAA, incarcerated hernia, bowel obstruction, constipation, inflammatory bowel, hepatitis, peptic ulcer disease, splenic infarction, perforated viscus, vulvitis, ovarian torsion, PID, kidney stone, placenta abruption... This is not meant to be an all-inclusive list EKG interpreted by me (3pts min.). @ -As above X-rays interpreted by me (1pt min.). @ -None done CT interpreted by me (1pt min.). @ -None done U/S interpreted by me (1pt. min.). @ -Ultrasound shows no intrauterine gestational sac. There are small cysts or follicles in both ovaries. No free fluid is seen in the pelvis. Recommend correlation to serial quantitative beta hCG and follow-up ultrasound if necessary to differentiate between recent spontaneous , ectopic , or normal early What testing was considered but not performed or refused? (CT, X-rays, U/S, labs)? Why? @ -None What meds were considered but not given or refused? Why? @ -None Did you discuss the management of the patient with other professionals (professionals i.e. , PA, CHOIR LEADER, lab, RT, psych nurse, psychiatric social worker supervisor, straightening roll operator, teacher, canine enforcement officer, behavioral health case manager)? Give summary @ -Spoke with radiologist who called me to inform of the ultrasound findings Was smoking cessation discussed for >3mins.? @ -No Was critical care preformed (if so, how long)? @ -No Were there social determinants of health that impacted care today? How? (Homelessness, low income, unemployed, alcoholism, drug addiction, transportation, low edu. Level, literacy, decrease access to med. care, fpc, rehab)? @ -No Was there de-escalation of care discussed even if they declined (Discuss DNR or withdrawal of care, Hospice)? DNR status @ -No What co-morbidities impacted this encounter? (DM, HTN, Smoking, COPD, CAD, Cancer, CVA, ARF, Chemo, Hep., AIDS, mental health diagnosis, sleep apnea, mo rbid obesity)? @ -None Was patient admitted / discharged? Hospital course, mention meds given and r oute, prescriptions, significant lab abnormalities, going to OR and other pertinent info. @ -34-year-old female presenting with chief complaint of pelvic pain. She had a recent positive home test. No bleeding. History and physical examination are conducted. Hemoglobin is stable at 12.1. hCG is 203.1. Ultrasound cannot identify any IUP at this time. Differential includes early , ectopic , or spontaneous . Patient is educated on today's findings. She is given an order for repeat beta-hCG in 48 hours. She will follow-up with her MIXER HELPER doctor Riaz. Discharged. Follow-up with PCP. Report back to ER with any new or worsening symptoms. Discussed return parameters and answered all questions. Patient conveyed verbal understanding and agreed to the plan. I discussed this case in detail with my attending Dr. Vides Undiagnosed new problem with uncertain prognosis? @ -No Drug Therapy requiring intensive monitoring for toxicity (Heparin, Nitro, Insulin, Cardizem)? @ -No Were any procedures done? @ -No Diagnosis/symptom? @ -Threatened Acute, or Chronic, or Acute on Chronic? @ -Acute Uncomplicated (without systemic symptoms) or Complicated (systemic symptoms)? @ -Uncomplicated Side effects of treatment? @ -No Exacerbation, Progression, or Severe Exacerbation? @ -No Poses a threat to life or bodily function? How? (Chest pain, USA, IA, pneumonia, PE, COPD, DKA, ARF, appy, cholecystitis, CVA, Diverticulitis, Homicidal, Suicidal, threat to staff... and all critical care pts) @ -Unlikely at this time - Lab Data Result diagrams: 03/21/25 22:50 03/21/25 22:50 Lab Results 03/21/25 03/21/25 03/21/25 Range/Units 22:50 22:50 22:50 WBC 8.27 (4.50-10.00) 10*3/uL RBC 4.46 (4.10-5.20) 10*6/uL Hgb 12.1 (12.0-15.0) g/dL Hct 36.5 L (37.2-46.3) % MCV 81.8 (80.0-97.0) fL MCH 27.1 (27.0-32.0) pg MCHC 33.2 (32.0-37.0) g/dL Plt Count 104 L (140-440) 10*3/uL MPV 9.9 (9.5-12.2) fL Immature Gran % (Auto) 0.2 % Neutrophils % Not Reportable Neutrophils % (Manual) 53 % Band Neuts % (Manual) 8 % Lymphocytes % Not Reportable Lymphocytes % (Manual) 33 % Monocytes % Not Reportable Monocytes % (Manual) 6 % Eosinophils % Not Reportable Basophils % Not Reportable Immature Gran # 0.02 (0.00-0.04) 10*3/uL Neutrophils # Not Reportable Neutrophils # (Manual) 5.04 (1.3-7.7) k/uL Lymphocytes # Not Reportable Lymphocytes # (Manual) 2.73 (1.0-4.8) k/uL Monocytes # Not Reportable Monocytes # (Manual) 0.50 (0-1.0) k/uL Eosinophils # Not Reportable Basophils # Not Reportable Nucleated RBCs 0 (0-0) /100 WBC Manual Slide Review Performed Immature Plt Fraction 1.7 (1.1-6.1) % Sodium 131 L (137-145) mmol/L Potassium 4.2 (3.5-5.1) mmol/L Chloride 98 (98-107) mmol/L Carbon Dioxide 22 (22-30) mmol/L Anion Gap 11 mmol/L BUN 8 (7-17) mg/dL Creatinine 0.55 (0.52-1.04) mg/dL Est GFR (CKD-EPI)AfAm >90 (>60 ml/min/1.73 sqM) Est GFR (CKD-EPI)NonAf >90 (>60 ml/min/1.73 sqM) Glucose 226 H (74-99) mg/dL Calcium 8.9 (8.4-10.2) mg/dL Total Bilirubin 1.6 H (0.2-1.3) mg/dL AST 60 H (14-36) U/L ALT 81 H (4-34) U/L Alkaline Phosphatase 103 (38-126) U/L Total Protein 6.6 (6.3-8.2) g/dL Albumin 3.5 (3.5-5.0) g/dL HCG, Quant 203.1 mIU/mL Urine Color Yellow Urine Appearance Turbid H (Clear) Urine pH 5.5 (5.0-8.0) Ur Specific [place] 1.023 (1.001-1.035) Urine Protein Trace H (Negative) Urine Glucose (UA) 1+ H (Negative) Urine Ketones Trace H (Negative) Urine Blood Trace H (Negative) Urine Nitrite Negative (Negative) Urine Bilirubin Negative (Negative) Urine Urobilinogen 2.0 (<2.0) mg/dL Ur Leukocyte Esterase Negative (Negative) Urine RBC 2 (0-5) /hpf Urine WBC 1 (0-5) /hpf Ur Squamous Epith Cells 3 (0-4) /hpf Amorphous Sediment Few H (None) /hpf Urine Bacteria Occasional H (None) /hpf Urine Mucus Few H (None) /hpf Disposition Clinical Impression: Threatened Disposition: HOME SELF-CARE Condition: Good Instructions (If sedation given, give patient instructions): Threatened Miscarriage (ED) Additional Instructions: Follow-up with your MIXER HELPER. You will need a repeat beta-hCG in 48 hours, you may take your order to the [facility] lab to have this performed. Report back to ER with any new or worsening symptoms. Is patient prescribed a controlled substance at d/c from ED?: No Referrals: Eulalio Almanzar MD [Primary Care Provider] - 1-2 days Herbert Mello MD [STAFF PHYSICIAN] - 1-2 days Time of Disposition: 00:40
[2025-03-21] MEDS: ACETAMINOPHEN TAB 325 MG TAB PO STA (23:14)
[2025-03-21] MEDS: SODIUM CHLORIDE 0.9% 1,000 ML IV ONE (23:15)
[2025-03-21 23:24] LABS: ALT 81 U/L (4-34); AST 60 U/L (14-36); African American GFR (CKD) >90 (>60 ml/min/1.73 sqM); Albumin 3.5 g/dL (3.5-5.0); Alkaline Phosphatase 103 U/L (38-126); Anion Gap 11 mmol/L; Blood Urea Nitrogen 8 mg/dL (7-17); Calcium 8.9 mg/dL (8.4-10.2); Carbon Dioxide 22 mmol/L (22-30); Chloride 98 mmol/L (98-107); Glucose 226 mg/dL (74-99); Non-African American GFR(CKD) >90 (>60 ml/min/1.73 sqM); Potassium 4.2 mmol/L (3.5-5.1); Sodium 131 mmol/L (137-145); Total Bilirubin 1.6 mg/dL (0.2-1.3); Total Protein 6.6 g/dL (6.3-8.2)
[2025-03-21 23:36] LABS: HCG,Quantitative Serum 203.1 mIU/mL
[2025-03-22 00:05] LABS: Amorphous Sediment,Urine Few /hpf; Appearance,Urine Turbid (Clear); Bacteria,Urine Occasional /hpf; Bilirubin,Urine Negative (Negative); Blood,Urine Trace (Negative); Color,Urine Yellow; Glucose,Urine (UA) 1+ (Negative); Ketones,Urine Trace (Negative); Leukocyte Esterase,Urine Negative (Negative); Mucus,Urine Few /hpf; Nitrite,Urine Negative (Negative); PH, Urine 5.5 (5.0-8.0); Protein,Urine Trace (Negative); RBC,Urine 2 /hpf (0-5); Specific Gravity,Urine 1.023 (1.001-1.035); Squamous Epithelial Cell,Urine 3 /hpf (0-4); WBC,Urine 1 /hpf (0-5)
--- NOTE | 2025-03-22 00:10 | US ---
EXAM: US , Transvaginal CLINICAL HISTORY: US Reason: pain TECHNIQUE: Real-time transvaginal obstetrical ultrasound of the maternal pelvis and a first trimester with image documentation. Transvaginal imaging was used for better evaluation of the fetus and adnexa. COMPARISON: No relevant prior studies available. FINDINGS: Gestation: The endometrial stripe is thickened measuring 1.7 cm. No intrauterine gestational sac is identified. There is a 4-5 mm cluster of tiny cysts within it. This is nonspecific. Placenta/amniotic fluid: Not applicable. Uterus/cervix: The uterus measures 8.1 x 4.7 x 5.3 cm, 106 mL. No myometrial mass. Ovaries: The left ovary measures 4 x 2.5 x 3 cm, 15.4 mL. There is a 1.6 cm follicle in the left ovary. Doppler blood flow is normal. The right ovary measures 3.5 x 2.5 x 2.6 cm, 12.3 mL. Possible 9 mm cyst or follicle in the right ovary. No mass. Free fluid: No free fluid in the pelvis. IMPRESSION: No intrauterine gestational sac is identified. There are small cysts or follicles in both ovaries. No free fluid is seen in the pelvis. Recommend correlation to serial quantitative beta HCG and follow-up ultrasound if necessary to differentiate between recent spontaneous , ectopic , or normal early . <MYCVCSECTION> Communications: 03/22/25 00:11 Call Doctor Regarding Above results, called CLAIRE Caldera on 03/22 00:11 (-04:00)
[2025-03-22 01:13] VITALS: BP 110/80; PULSE 89
[2025-03-22 05:53] LABS: Band Neutrophils % 8 %; Lymphocytes # (M) 2.73 k/uL (1.0-4.8); Neutrophils # (M) 5.04 k/uL (1.3-7.7); Neutrophils % (M) 53 %; Nucleated Red Blood Cells 0 /100 WBC (0-0); Total Cells Counted 100
== END 2025-03-22 01:13 | disposition home or self-care (01) ==
LOC: EC 22:02
DX: O20.0 Threatened abortion (principal); Z3A.08 8 weeks gestation of pregnancy
CPT/HCPCS: 36415; 76801; 76817; 80053; 81001; 84702; 85025; 96360; 99284

== ENCOUNTER → 2025-03-24 | Outpatient (CLI) | payer BC | END | disposition home or self-care (01) | LOC: LABWHC1 10:46 | PROVIDERS: ATTEND Obstetrics & Gynecology | DX: O20.0 Threatened abortion (principal); Z3A.00 Weeks of gestation of pregnancy not specified | CPT/HCPCS: 36415; 84702 ==

== ENCOUNTER → 2025-03-29 | Outpatient (CLI) | payer BC | END | disposition home or self-care (01) | LOC: LABWHC1 07:32 | PROVIDERS: ATTEND Obstetrics & Gynecology | DX: O20.0 Threatened abortion (principal); Z3A.00 Weeks of gestation of pregnancy not specified | CPT/HCPCS: 36415; 84702 ==